=== PATIENT | male | born 1965 | race Caucasian/White ===

== ENCOUNTER 2019-03-10 08:15 | Outpatient (CLI) | payer MEDICARE, MEDICAID ==
[~2019-03-10] VITALS: Ht 170.2 cm; Wt 72.6 kg
[2019-03-10] MEDS ORDERED: OMEP20TA7 PO (08:45)
[2019-03-10] MEDS ORDERED: LEVO50TA6 PO (08:45)
[2019-03-10] MEDS ORDERED: BIMA2.5D4 OU (08:45)
[2019-03-10] MEDS ORDERED: LISI1TAB6 PO (08:45)
== END 2019-03-10 08:49 | disposition home or self-care (01) ==
LOC: PREOP 08:15
PROVIDERS: ATTEND Surgery
DX: Z01.818 Encounter for other preprocedural examination (principal)

== ENCOUNTER → 2019-03-10 | Outpatient (CLI) | payer MEDICARE, MEDICAID ==
[~2019-03-10] MED LIST: BIMA2.5D4 OU; LEVO50TA6 PO; LISI1TAB6 PO; OMEP20TA7 PO
--- NOTE | 2019-03-10 09:33 | Diagnostic Imaging Report ---
INDICATION: Right upper quadrant abdominal pain. TECHNIQUE: Multiple grayscale sonographic images were obtained of the right upper quadrant of the abdomen. CORRELATION STUDY: None FINDINGS: LIVER: There is uniform echotexture within the visualized portions of the liver. Liver length is 16.2 cm. GALLBLADDER: Echogenic foci within the gallbladder lumen. This does not demonstrate appreciable enhancement may reflect small amount of sludge or debris. Gallstone not excluded. There is presence of gallbladder wall thickening at 4 mm. COMMON BILE DUCT: Nondilated at 3 mm. PANCREAS: Largely obscured. RIGHT KIDNEY: Measures 11.0 x 6.7 x 6.1 cm cm. No hydronephrosis. AORTA/IVC: Not well visualized. OTHER: None. IMPRESSION: 1. Question of potential the gallstone versus sludge or debris. There is presence of gallbladder wall thickening. Some of this may be attributed to slightly contracted gallbladder. Gallbladder wall edema with cholecystitis however is not excluded. If further assessment is desired, HIDA scan would be recommended. Dictated by: Dictated on workstation # [id number]
== END ==
LOC: RAD 07:05
PROVIDERS: ATTEND Surgery
DX: K82.8 Other specified diseases of gallbladder (principal)
CPT/HCPCS: 76705

== ENCOUNTER 2019-03-17 08:10 | Day surgery (SDC) | payer MEDICARE, MEDICAID ==
[~2019-03-17] VITALS: Ht 170.2 cm; Wt 72.6 kg
[2019-03-17] VITALS (12 sets, daily range): BP systolic 129–143; BP diastolic 81–93
[2019-03-17] MEDS ORDERED: ceFAZolin 2 GM/50 ML NS 50 ML IV ONE (08:30)
[2019-03-17] MEDS ORDERED: CATHETER FLUSH 10 ML SYR IV PRN (08:30)
[2019-03-17] MEDS: LACTATED RINGERS 1,000 ML IV PRN ×2 (08:44→10:22)
[2019-03-17 08:48] LABS: BASOPHILS % (AUTO) 0 % (0-10); EOSINOPHILS % (AUTO) 0 % (0-10); HEMATOCRIT 33 % (40-54); HEMOGLOBIN 12.2 G/DL (13.3-17.7); LYMPHOCYTES # (AUTO) 0.9 X 10^3 (1.0-4.0); LYMPHOCYTES % (AUTO) 15 % (12-44); MEAN CORPUSCULAR HEMOGLOBIN 37 PG (25-34); MEAN CORPUSCULAR HGB CONC 37 G/DL (32-36); MEAN CORPUSCULAR VOLUME 100 FL (80-99); MEAN PLATELET VOLUME 13.1 FL (7.4-10.4); MONOCYTES # (AUTO) 0.7 X 10^3 (0.0-1.0); MONOCYTES % (AUTO) 11 % (0-12); NEUTROPHILS # (AUTO) 4.4 X 10^3 (1.8-7.8); NEUTROPHILS % (AUTO) 74 % (42-75); PLATELET COUNT 93 10^3/uL (130-400)
[2019-03-17] MEDS ORDERED: BUP/EPI 0.5% 1:200,000 (MARCAINE) 10ML VIAL IJ ONE (09:10)
--- NOTE | 2019-03-17 09:24 | Progress Note-Pre Operative ---
Pre-Operative Progress Note H&P Reviewed The H&P was reviewed, patient examined and no changes noted. Date Seen by Provider: Mar 17, 2019 Time Seen by Provider: 09:20 Date H&P Reviewed: Mar 17, 2019 Time H&P Reviewed: 09:15 Pre-Operative Diagnosis: Chronic Calculous cholecystitis, Reflux, Screening colonoscopy SONIA UNGER APRN Mar 17, 2019 09:24
[2019-03-17] MEDS ORDERED: HYDR-3816 PO (09:26)
--- NOTE | 2019-03-17 09:29 | Discharge Inst-Surgical ---
D/C Lap Instructions-KIDO Reconcile Patient Problems Problems Reviewed?: Yes New, Converted, or Re-Newed RX: RX on Chart Follow Up Appt in 2 weeks Activity as tolerated No driving for 24 hours No driving while on pain medications Incentive Spirometry use every 2 hours while awake Regular Diet High Fiber Diet 25g or more per day Avoid Alcohol, Caffeine, Spicy [place] and Acid foods. Drink 64 fluid oz or more of fluids per day. Symptoms to Report: Fever over 101 degree F, Nausea/Vomiting Infection Signs and Symptoms to report: Increased redness, Foul odor of wound, Increased drainage Bathing instructions: May shower Operative Area Clean/Dry; Keep incision clean/dry Symptoms to Report: Fever over 101 degree F, Nausea/Vomiting If any problems/questions: Contact your physician or go to Emergency Room SONIA UNGER APRN Mar 17, 2019 09:29
[2019-03-17] MEDS ORDERED: morphine INJ 10 MG/ML 1ML (SYR OR VIAL) IVP PRN (09:30)
[2019-03-17] MEDS ORDERED: ONDANSETRON 4 MG/2 ML (SDV) Z0FRAN IVP PRN ×3 (09:30→12:15)
[2019-03-17] MEDS ORDERED: ACETAMINOPHEN 325 MG TABLET PO PRN (09:30)
[2019-03-17] MEDS ORDERED: HYDROcodone/APAP 5 MG/325 MG (LORTAB) TAB PO ONE (09:30)
[2019-03-17] MEDS ORDERED: ONDANSETRON 4 MG/2 ML (SDV) Z0FRAN ONE (09:32)
[2019-03-17] MEDS ORDERED: SEVOFLURANE (ULTANE) 15 ML INHAL SOLN ONE ×14 (09:32→11:41)
[2019-03-17] MEDS ORDERED: proPOfol 200 MG/20 ML (DIPRIVAN) VIAL IV ONE (09:32)
[2019-03-17] MEDS ORDERED: LIDOCAINE PF 2% 5 ML (XYLOCAINE) VIAL ONE (09:32)
[2019-03-17] MEDS ORDERED: ROCURONIUM 10 MG/ML 5 ML SYRINGE IV ONE (09:33)
[2019-03-17] MEDS ORDERED: fentaNYL INJECTION 100 MCG/2 ML AMP ONE ×2 (09:33→10:35)
[2019-03-17] MEDS ORDERED: MIDAZOLAM 2 MG/2 ML (VERSED) VIAL ONE ×2 (09:33→09:47)
[2019-03-17] MEDS ORDERED: MIDAZOLAM 2 MG/2 ML (VERSED) VIAL IVP ONE (10:00)
[2019-03-17] MEDS ORDERED: DEXAMETHASONE 10 MG/ML (DECADRON) 1 ML VIAL ONE (10:21)
[2019-03-17] MEDS ORDERED: morphine INJ 10 MG/ML 1ML (SYR OR VIAL) IVP ONE ×2 (11:15→12:15)
[2019-03-17] MEDS ORDERED: MEPERIDINE (DEMEROL) INJ 50 MG/ML IVP ONE ×2 (11:15→12:15)
[2019-03-17 11:30] LABS: HEMOGLOBIN 9.7 G/DL (13.3-17.7)
[2019-03-17] MEDS ORDERED: GLYCOPYRROLATE 0.2 MG/ML (ROBINUL) 2 ML VIAL ONE (11:34)
[2019-03-17] MEDS ORDERED: NEOSTIGMINE 3 MG/3 ML VIAL ONE (11:34)
--- NOTE | 2019-03-17 11:47 | Progress Note-Post Operative ---
Post-Operative Progess Note Surgeon (s)/Agricultural Produce Commission Agent (s) Surgeon Dr. Emmanuel De Souza M.D. Agricultural Produce Commission Agent: Emilio Unger [employer]ORAGE CLERK Pre-Operative Diagnosis Chronic Calculous cholecystitis, Reflux, Screening colonoscopy Post-Operative Diagnosis Chronic Calculous cholecystitis, Grade III esophageal Varices, moderate to severe gastritis, Chronic stage II external and internal hemorrhoids Procedure & Operative Findings Date of Procedure 03/17/19 Procedure Performed/Findings Laparoscopic cholecystectomy, EGD with biopsy, colonoscopy Anesthesia Type GET Estimated Blood Loss Estimated blood loss (mL): 900 ml Specimens/Packing Specimens Removed 1) Gallbladder 2) Antrum EMILIO UNGER [employer] STORAGE CLERK Mar 17, 2019 11:47
[2019-03-17] MEDS ORDERED: PANT40TA2 PO (11:49)
[2019-03-17] MEDS ORDERED: HYDROcodone/APAP 7.5 MG/325 MG (LORTAB, LORCET PLUS) TABLET PO ONE (13:26)
[2019-03-17] MEDS ORDERED: HYDROcodone/APAP 5 MG/325 MG (LORTAB) TAB ONE (13:27)
--- NOTE | 2019-03-17 14:05 | Anesthesia-General Post-Op ---
General Patient Condition Mental Status/LOC: Same as Preop Cardiovascular: Satisfactory Nausea/Vomiting: Absent Respiratory: Satisfactory Pain: Controlled Complications: Absent Post Op Complications Complications None Follow Up Care/Instructions Patient Instructions None needed. Anesthesia/Patient Condition Patient Condition Patient is doing well, C/O some pain which is expected, stable vital signs, no apparent adverse anesthesia problems. CRISS ARRIAGA DO Mar 17, 2019 14:05
--- NOTE | 2019-03-17 20:18 | OPERATIVE REPORT ---
DATE OF SERVICE: 03/17/2019 ATTENDING PRIMARY CARE PHYSICIAN: Dr. Caden Fernandez. PREOPERATIVE DIAGNOSES: 1. Symptomatic chronic calculous cholecystitis. 2. Gastroesophageal reflux disease, screening colonoscopy. POSTOPERATIVE DIAGNOSES: Chronic calculous cholecystitis, diffuse liver cirrhosis, grade III esophageal varices, moderate to severe gastritis, mild chronic stage II external and internal hemorrhoids. PROCEDURE: Laparoscopic cholecystectomy, EGD with biopsy, colonoscopy. SURGEON: Bria De Souza MD ANESTHESIA: Conscious sedation. ESTIMATED BLOOD LOSS: 900 mL. FINDINGS: Diffuse liver cirrhosis, multiple gallstones, grade III esophageal varices, moderate to severe gastritis. No active bleeding. Chronic stage II external and internal hemorrhoids. Remainder of the colon and rectum were normal. DISPOSITION: The patient tolerated the procedure well. INDICATIONS: The patient is a 53-year-old male referred over to us for pain in the right upper abdominal quadrant with associated intermittent episodes of nausea and vomiting. He also does report a history of gastroesophageal reflux disease. An ultrasound was performed, which did show biliary sludge. He also is in need of a screening colonoscopy and has not had one before up to this point in his life. Of note, this gentleman does drink a significant amount of alcohol and reports that he has drank approximately 20 beers daily for the past 30 years. DESCRIPTION OF PROCEDURE: The patient was brought to the operating room, laid supine on the table. After adequate IV pain and sedative medications and general endotracheal intubation, the abdomen was prepped and draped in standard surgical fashion. Left upper abdominal quadrant and a transverse skin incision made using a 15 blade. An 0 silk suture was applied to the medial aspect of the incision for retraction and a Veress needle inserted with a low opening pressure of 0 mmHg and the abdomen was then insufflated to 15 mmHg pressure. The Veress needle removed and a 5 mm XL trocar placed followed by a 5 mm 45-degree angle laparoscope visualizing the peritoneal cavity. A 4-quadrant abdominal exploration was performed. There was diffuse liver, micronodular liver cirrhosis. There was slightly distended gallbladder, no gallbladder wall thickening. Under direct visualization, we then proceeded to place a supraumbilical 10 mm port after the skin an peritoneal lining were anesthetized using 0.5% Marcaine with epinephrine and a transverse skin incision made using a 15 blade. In a similar manner, a right upper abdominal quadrant 5 mm port was placed. The patient was then placed in the reverse Trendelenburg position as well as plane right side up, left side down. The fundus of the gallbladder was then retracted anteriorly and superiorly. The hepatoduodenal ligament was then opened and dissected using blunt dissection as well as electrocautery on the hook instrument. The entire critical view of safety was identified including the triangle of Calot as well as the cystic duct and artery as the only two structures going into the gallbladder as well as the cystic plate behind the proximal gallbladder. While dissecting the cystic artery, we did run into bleeding, which was controlled with a clip and fibrin glue. After bleeding, good hemostasis was observed. We proceeded with our dissection of the clipping of the cystic duct and artery proximally, distally and cutting them with EndoShears. The gallbladder was then dissected off the liver bed using cautery on the hook instrument with visualization of good hemostasis as well as no leaking ducts of [place]ch[place]. The gallbladder was removed through the 10 mm port site using an EndoCatch bag. Approximately 900 mL of blood loss was encompassed which was suctioned out. Post-procedure, CBC was within stable limits at 9.7. The gallbladder was removed through the 10 mm port site using an EndoCatch bag. The gallbladder was examined ex-vivo on the back table with small stones identified. The 10 mm port site fascia and peritoneum were then closed under direct visualization using a Nathan-Fany device and 0 Vicryl suture. The abdomen was then desufflated and remaining ports removed. All skin incisions were closed using 4-0 Monocryl running subcuticular sutures. Wounds were then cleaned and covered with Dermabond. We then proceeded with the EGD. The mouthpiece was applied. The endoscope was placed in the mouth, visualizing the pharynx and hypopharyngeal region. Vocal cords, epiglottis and vallecula identified and appeared to be normal. The endoscope was then gently intubated at the esophageal opening and esophagus insufflated. The endoscope was then advanced to the first, second and third portion of esophagus. At the distal esophagus, there were grade III esophageal varices identified. These were not actively bleeding. The endoscope was placed past the lower esophagus and the endoscope retroflexed visualizing no hiatal hernia. There was a mild to moderate gastritis. No formal ulcerations, polyps or any neoplasms. A biopsy was taken of the antrum to rule out H. pylori with visualization of good hemostasis. The endoscope was then advanced to the pylorus and the first and second portion of the duodenum, which appeared normal with no ulcerations or any distal obstructions. The endoscope was then slowly withdrawn while taking a second look and suctioning of residual air with no additional findings. Under the same anesthesia, we then proceeded with the colonoscopy portion of the procedure and the patient was placed in frog leg position. A digital rectal examination was performed, which revealed chronic stage II external and internal hemorrhoids, not actively edematous nor inflamed and no bleeding. Normal sphincter tone was felt and there were no palpable masses. Prostate gland was palpable and appeared normal. The endoscope was then intubated to the anus and rectum gently insufflated. The endoscope was then advanced to the valves of [place] of the rectum with no polyps or any neoplasms identified. We then proceeded through the sigmoid colon where no diverticulosis identified. The endoscope was then advanced to the remainder of the descending, transverse and ascending colon to the cecum. These segments were normal. There were no polyps or any neoplasms identified throughout the colon or rectum. The endoscope was then slowly withdrawn while taking a second look and suctioning of residual air with no additional findings. The patient tolerated the procedure well. We will recommend that he proceed with further medical therapy for his liver cirrhosis encompassing alcohol cessation as well as being referred to hepatology for delineation of modified Child-Garcia classification as well as his MELD score. He does have significant grade III esophageal varices as well, which will need to be further evaluated and potentially decompressed with a portosystemic shunt. If he does abstain from alcohol and he does meet the criteria for liver transplantation, he may potentially be placed on a list. Job ID: [id number] DocumentID: [id number] Dictated Date: 03/17/2019 15:30:14 Animal Tech Date: 03/17/2019 20:17:34 Dictated By: BRIA DE SOUZA MD MTDD
== END 2019-03-17 14:40 | disposition home or self-care (01) ==
LOC: SDC 08:10
PROVIDERS: ATTEND Surgery
DX: Z12.11 Encounter for screening for malignant neoplasm of colon (principal); K21.9 Gastro-esophageal reflux disease without esophagitis; K80.10 Calculus of gallbladder with chronic cholecystitis without obstruction; D36.0 Benign neoplasm of lymph nodes; I85.00 Esophageal varices without bleeding; K29.50 Unspecified chronic gastritis without bleeding; K74.60 Unspecified cirrhosis of liver; K64.8 Other hemorrhoids; K64.1 Second degree hemorrhoids; I10 Essential (primary) hypertension; E03.9 Hypothyroidism, unspecified; Z80.0 Family history of malignant neoplasm of digestive organs; Z79.891 Long term (current) use of opiate analgesic; Z79.899 Other long term (current) drug therapy
CPT/HCPCS: 43239; 47562; G0105; 36415; 85014; 85018; 85025; 87081; 88304; 88305; 88342

== ENCOUNTER → 2019-05-21 | Outpatient (CLI) | payer MEDICARE, MEDICAID ==
[~2019-05-21] MED LIST changes: +HYDR-3816 PO; +PANT40TA2 PO
--- NOTE | 2019-05-21 10:51 | Diagnostic Imaging Report ---
INDICATION: ABDOMEN PAIN COMPARISON: None FINDINGS: Supine and upright views of the abdomen show a a few mildly prominent air-filled loops of small bowel, greatest involving the proximal small bowel in the left hemiabdomen. A few air-fluid levels are also noted scattered throughout. There is no large collection of free intraperitoneal air. No abnormal extraosseous calcifications are seen. Bony and soft tissue structures are within normal limits. No organomegaly is identified. Accompanying upright chest shows normal heart size and pulmonary vascularity. The lungs are well aerated and clear. The mediastinum is normal in appearance. IMPRESSION: 1. Few mildly prominent loops of small bowel with scattered air-fluid levels. Findings could be on the basis of early or partial obstruction. Nonspecific enteritis is also consideration. 2. No acute cardiopulmonary process. Dictated by: Dictated on workstation # [id number]
== END ==
LOC: RAD FS 09:40
PROVIDERS: ATTEND Emergency Medicine
DX: K70.30 Alcoholic cirrhosis of liver without ascites (principal); K63.89 Other specified diseases of intestine
CPT/HCPCS: 74022

== ENCOUNTER 2020-06-07 09:43 | Emergency (ER) | payer MEDICARE, MEDICAID ==
[~2020-06-07] VITALS: Ht 167.7 cm; Wt 71.9 kg
[~2020-06-07 09:43] MED LIST changes: +HYDR-34 PO; -HYDR-3816 PO; +LISI1TAB29 PO; -LISI1TAB6 PO
[2020-06-07] MEDS ORDERED: NS IV 1000 ML 1,000 ML IV STA (09:54)
--- NOTE | 2020-06-07 09:58 | ED General ---
General Stated Complaint: BACK PAIN Source of Information: Patient, Old Records, RN/MD, RN Notes Reviewed History of Present Illness Date Seen by Provider: Jun 07, 2020 Time Seen by Provider: 09:45 Initial Comments This patient is a 54-year-old male presents to the emergency department complaining of right flank pain radiating to the right groin. Patient states he awakened this morning with this pain. Patient admits that he is a heavy drinker has been drinking most of his life is considered an alcoholic. Last drink was last night. Patient states he never had pain like this before. Patient denies any injury. Patient denies any fever. We'll do medical evaluation treatment is needed. Patient states she does have a history of liver problems concerning for possible cirrhosis of the liver. Severity: Moderate Associated Systoms: No Denies Symptoms, No Chest Pain, No Cough, No Diaphoresis, No Fever/Chills, No Headaches, No Loss of Appetite, No Malaise, No Nausea/Vomiting, No Rash, No Seizure, No Shortness of Air, No Syncope, No Weakness, No Other Allergies and Home Medications Allergies Coded Allergies: No Known Drug Allergies (Unverified , 03/10/19) Home Medications Bimatoprost 2.5 Ml Drops, 1 DROP OU DAILY, (Reported) Hydrocodone Bit/Acetaminophen 1 Each Tablet, 1-2 TAB PO Q4H Prescribed by: SONIA UNGER on 03/17/19 0926 Levothyroxine Sodium 50 Mcg Tablet, 50 MCG PO DAILY, (Reported) Lisinopril/Hydrochlorothiazide 1 Each Tablet, 2 EACH PO DAILY, (Reported) Pantoprazole Sodium 40 Mg Tablet.dr, 40 MG PO DAILY Prescribed by: SONIA UNGER on 03/17/19 1149 Patient Home Medication List Home Medication List Reviewed: Yes Review of Systems Review of Systems Constitutional: No no symptoms reported, No see HPI, No chills, No diaphoresis, No dizziness, No fever, No malaise, No weakness, No weight gain, No weight loss, No other EENTM: No see HPI, No no symptoms reported, No ear discharge, No hearing loss, No ear pain, No blurred vision, No double vision, No eye pain, No tearing, No vision loss, No dental problems, No hoarseness, No mouth pain, No mouth swelling, No epistaxis, No nose congestion, No nose pain, No throat pain, No throat swelling, No other Respiratory: No no symptoms reported, No see HPI, No cough, No dyspnea on exertion, No hemoptysis, No orthopnea, No phlegm, No short of breath, No stridor, No wheezing, No other Cardiovascular: No no symptoms reported, No see HPI, No chest pain, No edema, No Hx of Intervention, No palpitations, No syncope, No vascular heart diseas, No other Gastrointestinal: No RUQ, No LUQ, No RLQ, No LLQ, No no symptoms reported, No see HPI, No abdominal pain, No constipation, No diarrhea, No dysphagia, No hematemesis, No heartburn, No jaundice, No loss of appetite, No melena, No naus ea, No vomiting; other (flank pain) Genitourinary: No no symptoms reported, No see HPI, No decreased output, No discharge, No dysuria, No frequency, No hematuria, No hesitancy, No incontinence, No nocturia, No pain, No other Musculoskeletal: No no symptoms reported; see HPI, back pain; No gout, No joint pain, No joint swelling, No muscle pain, No muscle stiffness, No muscle cramps, No muscle twitching, No muscle weakness, No neck pain, No other Skin: No no symptoms reported, No see HPI, No change in color, No change in hair/nails, No dryness, No hx of skin cancer, No lesions, No lumps, No pruritus, No rash, No other All Other Systems Reviewed Negative Unless Noted: Yes Past Okgjijn-Zqtpsg-Mwccbq Hx Patient Social History Alcohol Beverage of Choice: Beer Type Used: Cigarettes Former Smoker, Quit: Feb 15, 2018 Recent Foreign Travel: No Contact w/Someone Who Travel: No Recent Hopitalizations: No Seasonal Allergies Seasonal Allergies: No Past Medical History Surgeries: Yes (R knee scope, back sx) Respiratory: No Cardiac: Yes Hypertension Neurological: No Genitourinary: No Gastrointestinal: Yes (epigastric pain) Gastroesophageal Reflux Musculoskeletal: No Endocrine: Yes Hypothyroidsim HEENT: Yes Glaucoma Cancer: No Psychosocial: No Integumentary: No Blood Disorders: No Physical Exam Vital Signs Vital Signs - First Documented 06/07/20 09:48 Temp 36.6 Pulse 77 Resp 18 B/P (MAP) 179/100 (126) Pulse Ox 99 O2 Delivery Room Air Capillary Refill : Height, Weight, BMI Height: 5'7.00" Weight: 160lbs. 0.0oz. 72.520386lv; 25.1 BMI Method: General Appearance: No Apparent Distress, WD/WN Neck: Full Range of Motion, Normal Inspection, Non Tender, Supple, Carotid Bruit Respiratory: Chest Non Tender, Lungs Clear, Normal Breath Sounds, No Accessory Muscle Use, No Respiratory Distress Cardiovascular: Regular Rate, Rhythm, No Edema, No Gallop, No JVD, No Murmur, Normal Peripheral Pulses Gastrointestinal: Normal Bowel Sounds, No Organomegaly, No Pulsatile Mass, Soft, Tenderness Back: Normal Inspection, No Vertebral Tenderness, CVA Tenderness (R) Neurologic/Psychiatric: Alert, Oriented x3, No Motor/Sensory Deficits, Normal Mood/Affect Skin: Normal Color, Warm/Dry Progress/Results/Core Measures Suspected Sepsis SIRS Temperature: Pulse: Respiratory Rate: Laboratory Tests 06/07/20 09:55: White Blood Count 3.0L Blood Pressure / Mean: Laboratory Tests 06/07/20 09:55: Creatinine 0.75, Platelet Count 83L, Total Bilirubin 1.6H Results/Orders Lab Results Laboratory Tests Test 06/07/20 09:48 06/07/20 09:55 Range/Units Urine Color YELLOW Urine Clarity CLEAR Urine pH 8.0 5-9 Urine Specific [place] 1.015 L 1.016-1.022 Urine Protein NEGATIVE NEGATIVE Urine Glucose (UA) NEGATIVE NEGATIVE Urine Ketones NEGATIVE NEGATIVE Urine Nitrite NEGATIVE NEGATIVE Urine Bilirubin NEGATIVE NEGATIVE Urine Urobilinogen 4.0 < = 1.0 MG/DL Urine Leukocyte Esterase NEGATIVE NEGATIVE Urine RBC (Auto) NEGATIVE NEGATIVE Urine RBC NONE /HPF Urine WBC NONE /HPF Urine Squamous Epithelial Cells 0-2 /HPF Urine Crystals NONE /LPF Urine Bacteria NONE /HPF Urine Casts NONE /LPF Urine Mucus NEGATIVE /LPF Urine Culture Indicated NO Urine Opiates Screen NEGATIVE NEGATIVE Urine Oxycodone Screen NEGATIVE NEGATIVE Urine Methadone Screen NEGATIVE NEGATIVE Urine Propoxyphene Screen NEGATIVE NEGATIVE Urine Barbiturates Screen NEGATIVE NEGATIVE Ur Tricyclic Antidepressants Screen NEGATIVE NEGATIVE Urine Phencyclidine Screen NEGATIVE NEGATIVE Urine Amphetamines Screen NEGATIVE NEGATIVE Urine Methamphetamines Screen NEGATIVE NEGATIVE Urine Benzodiazepines Screen NEGATIVE NEGATIVE Urine Cocaine Screen NEGATIVE NEGATIVE Urine Cannabinoids Screen POSITIVE H NEGATIVE White Blood Count 3.0 L 4.3-11.0 10^3/uL Red Blood Count 3.84 L 4.35-5.85 10^6/uL Hemoglobin 13.6 13.3-17.7 G/DL Hematocrit 38 L 40-54 % Mean Corpuscular Volume 98 80-99 FL Mean Corpuscular Hemoglobin 35 H 25-34 PG Mean Corpuscular Hemoglobin Concent 36 32-36 G/DL Red Cell Distribution Width 12.2 10.0-14.5 % Platelet Count 83 L 130-400 10^3/uL Mean Platelet Volume 11.4 H 7.4-10.4 FL Immature Granulocyte % (Auto) 0 % Neutrophils (%) (Auto) 66 42-75 % Lymphocytes (%) (Auto) 23 12-44 % Monocytes (%) (Auto) 9 0-12 % Eosinophils (%) (Auto) 1 0-10 % Basophils (%) (Auto) 0 0-10 % Neutrophils # (Auto) 2.0 1.8-7.8 X 10^3 Lymphocytes # (Auto) 0.7 L 1.0-4.0 X 10^3 Monocytes # (Auto) 0.3 0.0-1.0 X 10^3 Eosinophils # (Auto) 0.0 0.0-0.3 10^3/uL Basophils # (Auto) 0.0 0.0-0.1 10^3/uL Immature Granulocyte # (Auto) 0.0 0.0-0.1 10^3/uL Sodium Level 126 L 135-145 MMOL/L Potassium Level 4.1 3.6-5.0 MMOL/L Chloride Level 91 L 98-107 MMOL/L Carbon Dioxide Level 22 21-32 MMOL/L Anion Gap 13 5-14 MMOL/L Blood Urea Nitrogen 6 L 7-18 MG/DL Creatinine 0.75 0.60-1.30 MG/DL Estimat Glomerular Filtration Rate > 60 BUN/Creatinine Ratio 8 Glucose Level 121 H 70-105 MG/DL Calcium Level 9.9 8.5-10.1 MG/DL Corrected Calcium 8.5-10.1 MG/DL Total Bilirubin 1.6 H 0.1-1.0 MG/DL Aspartate Amino Transf (AST/SGOT) 140 H 5-34 U/L Alanine Aminotransferase (ALT/SGPT) 99 H 0-55 U/L Alkaline Phosphatase 93 40-136 U/L Total Protein 7.3 6.4-8.2 GM/DL Albumin 4.7 H 3.2-4.5 GM/DL Lipase 26 8-78 U/L Serum Alcohol < 10 <10 MG/DL My Orders Orders - MIRYAM GREWAL MD Ed Iv/Invasive Line Start (06/07/20 09:54) Alcohol (06/07/20 09:54) Cbc With Automated Diff (06/07/20 09:54) Comprehensive Metabolic Panel (06/07/20 09:54) Lipase (06/07/20 09:54) Urinalysis (06/07/20 09:54) Drug Screen Stat (Urine) (06/07/20 09:54) Ct Abd/Pelvis Wo(Kidney Stone) (06/07/20 09:54) Ns Iv 1000 Ml (Sodium Chloride 0.9%) (06/07/20 09:54) Ondansetron Injection (Zofran Injectio (06/07/20 10:00) Ketorolac Injection (Toradol Injection) (06/07/20 10:16) Ketorolac Injection (Toradol Injection) (06/07/20 10:30) Orphenadrine Inj (Ed Only) (Norflex Inje (06/07/20 10:30) Medications Given in ED Current Medications Medications Dose Ordered Sig/Blu Route Start Time Stop Time Status Last Admin Dose Admin Ketorolac Tromethamine 15 mg ONCE ONCE IVP 06/07/20 10:30 06/07/20 10:31 DC 06/07/20 10:24 15 MG Ondansetron HCl 4 mg ONCE ONCE IVP 06/07/20 10:00 06/07/20 10:01 DC 06/07/20 10:23 4 MG Orphenadrine Citrate 60 mg ONCE ONCE IM 06/07/20 10:30 06/07/20 10:31 DC 06/07/20 10:35 60 MG Vital Signs/I&O 06/07/20 09:48 Temp 36.6 Pulse 77 Resp 18 B/P (MAP) 179/100 (126) Pulse Ox 99 O2 Delivery Room Air Capillary Refill : Progress Note : Time: 11:[address] abd IMPRESSION: 1. There is no evidence for nephrolithiasis or urolithiasis and the kidneys do not appear to be obstructed. 2. The appendix is not well visualized but there are no indirect signs of acute appendicitis. 3. The thickened appearance of the wall of the cecum and ascending colon may be secondary to incomplete distention. The possibility that there is an element of mild colitis should also be considered. 4. There is a small amount of nonspecific free fluid in the pelvis. 5. The bladder wall thickening may also be related to incomplete distention or less likely to cystitis. I did discuss at length with patient about findings. Patient is encouraged to stop drinking. Patient will be placed on Flagyl and Cipro. Patient given diclofenac and needed for pain. Patient should maintain a clear liquid diet and advance diet slowly. Do not advance diet until pain free. Follow-up with PCP in 2-3 days. If develops diarrhea patient should take Pepto-Bismol [id number]. Departure Impression Primary Impression: Abdominal pain Additional Impressions: Colitis Hyponatremia Alcoholism History of cirrhosis of liver Disposition: HOME, SELF-CARE Condition: Stable Departure-Patient Inst. Decision time for Depature: 11:05 Referrals: LOUANN DENIS DO (PCP/Family) Primary Care Physician Patient Instructions: Colitis, Severe Abdominal Pain, Adult (DC) Add. Discharge Instructions: Patient is encouraged to stop drinking. Patient will be placed on Flagyl and Cipro. Patient given diclofenac and needed for pain. Patient should maintain a clear liquid diet and advance diet slowly. Do not advance diet until pain free. Follow-up with PCP in 2-3 days. If develops diarrhea patient should take Pepto- Bismol [id number]. Scripts Metronidazole (Flagyl) 500 Mg Tablet 500 MG PO TID, #21 TAB 0 Refills Prov: MIRYAM GREWAL MD 06/07/20 Diclofenac Sodium (Diclofenac Sodium) 75 Mg Tablet. 75 MG PO BID for 10 Days, #20 TAB 0 Refills Prov: MIRYAM GREWAL MD 06/07/20 Ciprofloxacin HCl (Ciprofloxacin HCl) 500 Mg Tablet 500 MG PO BID, #14 TAB Prov: MIRYAM GREWAL MD 06/07/20 MIRYAM GREWAL MD Jun 07, 2020 09:57
[2020-06-07] MEDS ORDERED: KETOROLAC 60 MG/2 ML VIAL IV ONE (10:00)
[2020-06-07] MEDS ORDERED: ONDANSETRON 4 MG/2 ML (SDV) Z0FRAN IVP ONE (10:00)
[2020-06-07 10:09] LABS: BASOPHILS % (AUTO) 0 % (0-10); EOSINOPHILS % (AUTO) 1 % (0-10); HEMATOCRIT 38 % (40-54); HEMOGLOBIN 13.6 G/DL (13.3-17.7); LYMPHOCYTES # (AUTO) 0.7 X 10^3 (1.0-4.0); LYMPHOCYTES % (AUTO) 23 % (12-44); MEAN CORPUSCULAR HEMOGLOBIN 35 PG (25-34); MEAN CORPUSCULAR HGB CONC 36 G/DL (32-36); MEAN CORPUSCULAR VOLUME 98 FL (80-99); MEAN PLATELET VOLUME 11.4 FL (7.4-10.4); MONOCYTES # (AUTO) 0.3 X 10^3 (0.0-1.0); MONOCYTES % (AUTO) 9 % (0-12); NEUTROPHILS % (AUTO) 66 % (42-75); PLATELET COUNT 83 10^3/uL (130-400)
[2020-06-07 10:15] LABS: BILIRUBIN,URINE NEGATIVE (NEGATIVE); CLARITY,URINE CLEAR; COLOR,URINE YELLOW; GLUCOSE, URINE (UA) NEGATIVE (NEGATIVE); KETONES,URINE NEGATIVE (NEGATIVE); LEUKOCYTE ESTERASE ,URINE NEGATIVE (NEGATIVE); NITRITE,URINE NEGATIVE (NEGATIVE); PROTEIN,URINE NEGATIVE (NEGATIVE); SQUAMOUS EPITHELIAL CELL,UR 0-2 /HPF
[2020-06-07] MEDS ORDERED: KETOROLAC 15 MG/ML VIAL ONE (10:16)
[2020-06-07 10:19] LABS: AMPHETAMINE SCREEN, URINE NEGATIVE (NEGATIVE); BARBITURATE SCREEN URINE NEGATIVE (NEGATIVE); BENZODIAZEPINES SCREEN URINE NEGATIVE (NEGATIVE); CANNABINOID SCREEN, URINE POSITIVE (NEGATIVE); COCAINE SCREEN URINE NEGATIVE (NEGATIVE); METHADONE STAT NEGATIVE (NEGATIVE); METHAMPHETAMINE SCREEN URINE S NEGATIVE (NEGATIVE); OPIATE SCREEN URINE NEGATIVE (NEGATIVE); OXYCODONE STAT NEGATIVE (NEGATIVE); PROPOXYPHENE STAT NEGATIVE (NEGATIVE); TRICYCLIC ANTIDEPRESSANTS SCRE NEGATIVE (NEGATIVE)
[2020-06-07 10:29] LABS: ALANINE AMINOTRANSFERASE 99 U/L (0-55); ALBUMIN 4.7 GM/DL (3.2-4.5); ALKALINE PHOSPHATASE 93 U/L (40-136); BILIRUBIN,TOTAL 1.6 MG/DL (0.1-1.0); BUN/CREATININE RATIO 8; CALCIUM 9.9 MG/DL (8.5-10.1); CARBON DIOXIDE 22 MMOL/L (21-32); CHLORIDE 91 MMOL/L (98-107); CREATININE SERUM 0.75 MG/DL (0.60-1.30); GFR ESTIMATED > 60; GLUCOSE 121 MG/DL (70-105); LIPASE 26 U/L (8-78); POTASSIUM 4.1 MMOL/L (3.6-5.0); SODIUM 126 MMOL/L (135-145); TOTAL PROTEIN 7.3 GM/DL (6.4-8.2)
[2020-06-07] MEDS ORDERED: ORPHENADRINE 60 MG/2 ML (NORFLEX) AMP (ED ONLY) IM ONE (10:30)
[2020-06-07] MEDS ORDERED: KETOROLAC 15 MG/ML VIAL IVP ONE (10:30)
--- NOTE | 2020-06-07 10:55 | Diagnostic Imaging Report ---
PROCEDURE: CT urinary tract, rule out kidney stone. TECHNIQUE: Multiple contiguous axial images were obtained through the abdomen and pelvis without the use of intravenous contrast. Auto Exposure Controls were utilized during the CT exam to meet ALARA standards for radiation dose reduction. INDICATION: Right flank pain. COMPARISON: There are no prior CT examinations available for comparison. FINDINGS: There is no evidence for nephrolithiasis or urolithiasis and the kidneys do not appear to be obstructed. There is no solid renal mass identified but there does seem to be a 2.8 cm cyst along the lateral aspect of the left kidney. The appendix was not well visualized but there are no indirect signs of acute appendicitis. The wall of the cecum and ascending colon does seem somewhat thickened. This may be secondary to incomplete distention as there is no distortion of the pericolonic fat in this area to suggest colitis. Even so, the possibility of mild colitis should still be considered. There is a small amount of nonspecific free fluid in the pelvis. This is of uncertain etiology. The bladder wall is thickened and this appearance could be secondary to either cystitis or incomplete distention. Correlation with the patient's urinalysis would be recommended. The prostate gland does not appear to be enlarged. The liver, spleen, pancreas, adrenals, aorta, and inferior vena cava show no sign of an acute abnormality. The gallbladder is surgically absent. The stomach is not well distended and difficult to assess. There does seem to be a small hiatal hernia. The lung bases are clear. The bone windows are unremarkable for a fracture or for a destructive lesion. There is fairly severe degenerative disc and bony disease at L5-S1. IMPRESSION: 1. There is no evidence for nephrolithiasis or urolithiasis and the kidneys do not appear to be obstructed. 2. The appendix is not well visualized but there are no indirect signs of acute appendicitis. 3. The slightly thickened appearance of the wall of the cecum and ascending colon may be secondary to incomplete distention. The possibility that there is an element of mild colitis should also be considered. 4. There is a small amount of nonspecific free fluid in the pelvis. 5. The bladder wall thickening may also be related to incomplete distention or less likely to cystitis. Dictated by: Dictated on workstation # [id number]
[2020-06-07] MEDS ORDERED: METR500T PO (11:06)
[2020-06-07] MEDS ORDERED: DICL75TA2 PO (11:06)
[2020-06-07] MEDS ORDERED: CIPR500T4 PO (11:06)
[2020-06-07 11:14] VITALS: BP 161/78
== END 2020-06-07 11:14 | disposition home or self-care (01) ==
LOC: EDUNIT# 09:43 → ER FS 09:44
DX: R10.9 Unspecified abdominal pain (principal); K52.9 Noninfective gastroenteritis and colitis, unspecified; E87.1 Hypo-osmolality and hyponatremia; F10.20 Alcohol dependence, uncomplicated; E03.9 Hypothyroidism, unspecified; K21.9 Gastro-esophageal reflux disease without esophagitis; I10 Essential (primary) hypertension; H40.9 Unspecified glaucoma; F17.210 Nicotine dependence, cigarettes, uncomplicated; Z87.19 Personal history of other diseases of the digestive system; Z79.890 Hormone replacement therapy
CPT/HCPCS: 36415; 74176; 80053; 80306; 81000; 83690; 85025; G0480; 80320

== ENCOUNTER → 2021-01-01 | Outpatient (CLI) | payer MEDICARE, MEDICAID ==
[~2021-01-01] MED LIST changes: +BARIUM SUSPENSION 2.1% (VANILLA SILQ) 450 ML PO ONE; +CATHETER FLUSH 10 ML SYR IV PRN; +CIPR500T5 PO; +DICL75TA2 PO; +HOLD METFORMIN - RECEIVED CONTRAST 20 ML VIAL IV SCH; +IOHEXOL 350 MG/ML 100 ML (OMNIPAQUE 350) VIAL IV ONE; +METR500T PO; +NS 100 ML (IVPB) BAG IV ONE
--- NOTE | 2021-01-01 10:48 | Diagnostic Imaging Report ---
PROCEDURE: CT abdomen and pelvis with and without contrast. TECHNIQUE: Precontrast acquisitions were acquired through the abdomen and pelvis. Multiple contiguous axial images were obtained through the abdomen and pelvis after the administration of intravenous contrast. Auto Exposure Controls were utilized during the CT exam to meet ALARA standards for radiation dose reduction. INDICATION: Abnormal liver function tests. Correlation is made with prior CT from 06/07/2020. Lung bases are clear. There appear to be multiple varices surrounding the distal esophagus. The liver does demonstrate a nodular contour suggestive of cirrhosis. No discrete liver mass is detected. The gallbladder is surgically absent. No biliary ductal dilatation is seen. Pancreas and spleen are unremarkable. No adrenal mass is detected. Right kidney is unremarkable. Left kidney contains a 3 cm cyst in lower pole. There is no hydronephrosis. Aorta is nonaneurysmal. Bowel loops are normal caliber. There is no obstruction. There is no free fluid identified. The bladder and prostate are unremarkable. No definite abdominal or pelvic lymphadenopathy is detected. IMPRESSION: 1. Features consistent with cirrhosis. No discrete liver mass is identified. Patient does appear to have distal esophageal varices. No definite splenomegaly or ascites is identified. 2. Left renal cyst. 3. No other significant abnormality is detected. Dictated by: Dictated on workstation # [id number]
== END ==
LOC: RAD FS 09:54
PROVIDERS: ATTEND Internal Medicine Hematology & Oncology
DX: R94.5 Abnormal results of liver function studies (principal); D69.6 Thrombocytopenia, unspecified; N28.1 Cyst of kidney, acquired; Z90.49 Acquired absence of other specified parts of digestive tract
CPT/HCPCS: 74178

== ENCOUNTER 2021-01-09 14:39 | Outpatient (RCR) | payer MEDICARE, MEDICAID ==
[2020-12-18 14:11] LABS: BASOPHILS % (AUTO) 1 % (0-10); EOSINOPHILS % (AUTO) 0 % (0-10)
[2020-12-18 14:13] LABS: HEMATOCRIT 38 % (40-54); HEMOGLOBIN 13.7 g/dL (13.3-17.7); LYMPHOCYTES # (AUTO) 0.6 10^3/uL (1.0-4.0); LYMPHOCYTES % (AUTO) 16 % (12-44); MEAN CORPUSCULAR HEMOGLOBIN 36 pg (25-34); MEAN CORPUSCULAR HGB CONC 36 g/dL (32-36); MEAN CORPUSCULAR VOLUME 100 fL (80-99); MEAN PLATELET VOLUME 10.7 fL (9.0-12.2); MONOCYTES # (AUTO) 0.4 10^3/uL (0.0-1.0); MONOCYTES % (AUTO) 11 % (0-12); NEUTROPHILS % (AUTO) 73 % (42-75); PLATELET COUNT 91 10^3/uL (130-400); WHITE BLOOD COUNT 4.1 10^3/uL (4.3-11.0)
[2020-12-18 14:28] LABS: ALANINE AMINOTRANSFERASE 107 U/L (0-55); ALBUMIN 4.8 GM/DL (3.2-4.5); ALKALINE PHOSPHATASE 100 U/L (40-136); BILIRUBIN,TOTAL 1.8 MG/DL (0.1-1.0); BUN/CREATININE RATIO 8; CALCIUM 9.6 MG/DL (8.5-10.1); CARBON DIOXIDE 21 MMOL/L (21-32); CHLORIDE 93 MMOL/L (98-107); CREATININE SERUM 0.78 MG/DL (0.60-1.30); GFR ESTIMATED > 60; GLUCOSE 96 MG/DL (70-105); POTASSIUM 4.3 MMOL/L (3.6-5.0); SODIUM 127 MMOL/L (135-145); TOTAL PROTEIN 7.7 GM/DL (6.4-8.2)
[~2021-01-09 14:39] MED LIST changes: -BARIUM SUSPENSION 2.1% (VANILLA SILQ) 450 ML PO ONE; -CATHETER FLUSH 10 ML SYR IV PRN; -HOLD METFORMIN - RECEIVED CONTRAST 20 ML VIAL IV SCH; -IOHEXOL 350 MG/ML 100 ML (OMNIPAQUE 350) VIAL IV ONE; -NS 100 ML (IVPB) BAG IV ONE
== END 2021-03-18 | disposition home or self-care (01) ==
LOC: ONC 14:39
PROVIDERS: ATTEND Internal Medicine Hematology & Oncology
DX: D69.6 Thrombocytopenia, unspecified (principal); F10.20 Alcohol dependence, uncomplicated; E03.9 Hypothyroidism, unspecified; K70.30 Alcoholic cirrhosis of liver without ascites; I10 Essential (primary) hypertension; Z79.899 Other long term (current) drug therapy; Z79.890 Hormone replacement therapy
CPT/HCPCS: 80053; 82728; 83540; 83550; 83615; 85025; G0463; 82105; 99213; 99214

== ENCOUNTER 2021-05-07 13:03 | Emergency (ER) | payer MEDICARE, MEDICAID ==
[~2021-05-07] VITALS: Ht 167.7 cm; Wt 81.6 kg
--- OUTSIDE RECORDS SUMMARY | 2021-05-07 13:08 | XMS REPORT | Clinical Summary ---
Author Author [facility] Organization [facility] Address Unknown Phone Unavailable Care Team Providers Care Student Support Advisor Name Role Phone Cristian Montana MD Unavailable Caden Fernandez DO PCP Source Comments Some departments are not documenting in the electronic medical record. If you d o not see the information that you expected, contact Release of Information in [facility] [employer] Information Management department at [phone] for further assistan ce in locating additional records.[facility] Allergies No Known Active Allergies Medications End Date Status Medication Sig Dispensed Refills Start Date Active furosemide (LASIX) 40 mg Take 40 mg by 0 tablet mouth daily. Active spironolactone Take 100 mg 0 (ALDACTONE) 100 mg tablet by mouth daily. Active omeprazole DR(+) Take 20 mg by 0 (PRILOSEC) 20 mg capsule mouth twice daily. Active levothyroxine (SYNTHROID) Take 50 mcg 0 50 mcg tablet by mouth daily. Active Problems Not on file Social History Date Tobacco Use Types Packs/Day Years Used Quit: 08/31/2011 Former Smoker Cigarettes Comments Alcohol Use Standard Drinks/Week No 0 (1 standard drink = 0.6 o z pure alcohol) Sex Assigned at Date Recorded Not on file Last Filed Vital Signs Reading Time Taken Comments Vital Sign 115/77 05/01/2012 10:22 AM CDT Blood Pressure 57 05/01/2012 10:22 AM CDT Pulse 36.7 C (98 F) 05/01/2012 10:22 AM CDT Temperature 16 05/01/2012 10:22 AM CDT Respiratory Rate - - Oxygen Saturation - - Inhaled Oxygen Concentration 75.2 kg (165 lb 12.8 oz) 05/01/2012 10:22 AM CDT Weight 177.8 cm (5' 10") 05/01/2012 10:22 AM CDT Height 23.79 05/01/2012 10:22 AM CDT Body Mass Index Plan of Treatment Health Maintenance Due Date Last Done Comments MEDICARE ANNUAL WELLNESS 1967 VISIT HIV SCREENING 1982 DTAP/TDAP VACCINES (1 - 1985 Tdap) PHYSICAL (COMPREHENSIVE) 1985 EXAM COLORECTAL CANCER 2017 SCREENING SHINGLES RECOMBINANT 2017 VACCINE (1 of 2) INFLUENZA VACCINE 05/18/2021 HEPATITIS C SCREENING Completed 09/12/2011, 09/06/2011 Results Not on filefrom Last 3 Months Insurance Type Payer Benefit Subscriber ID Effective Phone Address Plan / Dates Group Medicare MEDICARE MEDICARE [id number] 2000-P PART A AND resent B Medicare UHC MEDICARE UHC [id number] 2019-P COMMUNITY resent [facility] [place] Medicaid [facility] MEDICAID [facility] [id number] 2013- COMM[place]ITY Present [place]AN [place] [phone] Advance Directives 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
--- NOTE | 2021-05-07 13:22 | ED General ---
General Stated Complaint: FALL Source of Information: Patient Exam Limitations: No Limitations History of Present Illness Date Seen by Provider: May 07, 2021 Time Seen by Provider: 13:10 Initial Comments 55-year-old male presents with pain in his right hip after a fall just prior to arrival. Patient states he fell off the back of a pickup truck, landing on his right side. Has been unable to get up or ambulate. Brought to the ER by a friend and extracted from his car by ER staff. Patient denies any other pain or injury. States he does have a history of back problems as well as cirrhosis. Allergies and Home Medications Allergies Coded Allergies: No Known Drug Allergies (Unverified , 03/10/19) Patient Home Medication List Home Medication List Reviewed: Yes Bimatoprost (Lumigan) 2.5 Ml Drops, 1 DROP OU DAILY, (Reported) Entered as Reported by: RACQUEL GROVES on 03/10/19 0845 Ciprofloxacin HCl (Ciprofloxacin HCl) 500 Mg Tablet, 500 MG PO BID Prescribed by: MIRYAM GREWAL on 06/07/20 1106 Diclofenac Sodium (Diclofenac Sodium) 75 Mg Tablet.dr, 75 MG PO BID Prescribed by: MIRYAM GREWAL on 06/07/20 1106 Hydrocodone Bit/Acetaminophen (HYDROcodone/APAP 7.5/325 TAB) 1 Each Tablet, 1-2 TAB PO Q4H Prescribed by: SONIA UNGER on 03/17/19 0926 Levothyroxine Sodium (Levothyroxine Sodium) 50 Mcg Tablet, 50 MCG PO DAILY, (Reported) Entered as Reported by: RACQUEL GROVES on 03/10/19 0845 Lisinopril/Hydrochlorothiazide (Lisinopril-Hctz 10-12.5 mg Tab) 1 Each Tablet, 2 EACH PO DAILY, (Reported) Entered as Reported by: RACQUEL GROVES on 03/10/19 0845 Metronidazole (Flagyl) 500 Mg Tablet, 500 MG PO TID Prescribed by: MIRYAM GREWAL on 06/07/20 1106 Pantoprazole Sodium (Protonix) 40 Mg Tablet.dr, 40 MG PO DAILY Prescribed by: SONIA UNGER on 03/17/19 1149 Review of Systems Review of Systems Constitutional: see HPI; No fever, No weakness Respiratory: no symptoms reported; No cough, No short of breath Cardiovascular: No chest pain, No edema, No palpitations, No syncope Gastrointestinal: No abdominal pain, No loss of appetite, No nausea, No vomiting Musculoskeletal: see HPI, back pain (chronic), joint pain; No neck pain Psychiatric/Neurological: See HPI; Denies Numbness, Denies Seizure, Denies Weakness Past Ghqvwku-Fccgpl-Ptsggw Hx Patient Social History Tobacco Use?: Yes Alcohol Use?: Yes Alcohol type: Beer Alcohol Frequency: Daily Seasonal Allergies Seasonal Allergies: No Past Medical History Surgeries: Yes (R knee scope, back sx) Gallbladder Respiratory: No Cardiac: Yes Hypertension Neurological: No Genitourinary: No Gastrointestinal: Yes (epigastric pain) Gastroesophageal Reflux, Cirrhosis Musculoskeletal: No Endocrine: Yes Hypothyroidsim HEENT: Yes Glaucoma Cancer: No Psychosocial: No Integumentary: No Blood Disorders: No Physical Exam Vital Signs Vital Signs - First Documented 05/07/21 05/07/21 13:10 15:19 Temp 36.5 Pulse 67 Resp 18 B/P (MAP) 170/87 (114) Pulse Ox 100 O2 Delivery Room Air O2 Flow Rate 2.00 Capillary Refill : Height, Weight, BMI Height: 5'7.00" Weight: 160lbs. 0.0oz. 72.648199fv; 25.00 BMI Method: General Appearance: WD/WN, Mild Distress (Moderate pain) Neck: Normal Inspection, Non Tender, Supple Respiratory: Chest Non Tender, Lungs Clear, Normal Breath Sounds, No Accessory Muscle Use, No Respiratory Distress Cardiovascular: Regular Rate, Rhythm, No Edema, No JVD Gastrointestinal: Non Tender, Soft Back: Normal Inspection, No CVA Tenderness, No Vertebral Tenderness Extremity: Normal Capillary Refill, Normal Inspection, Other (Right lower extremity externally rotated and shortened. Moderate tenderness generalized of the right hip.) Neurologic/Psychiatric: Alert, Oriented x3, No Motor/Sensory Deficits, Normal Mood/Affect Skin: Normal Color, Warm/Dry Progress/Results/Core Measures Suspected Sepsis SIRS Temperature: Pulse: Respiratory Rate: Laboratory Tests 05/07/21 13:20: White Blood Count 5.2 Blood Pressure / Mean: Laboratory Tests 05/07/21 13:20: Creatinine 0.75, Platelet Count 128L, Total Bilirubin 1.4H Results/Orders Lab Results Laboratory Tests Test 05/07/21 13:20 Range/Units White Blood Count 5.2 4.3-11.0 10^3/uL Red Blood Count 3.57 L 4.30-5.52 10^6/uL Hemoglobin 12.5 L 13.3-17.7 g/dL Hematocrit 33 L 40-54 % Mean Corpuscular Volume 94 80-99 fL Mean Corpuscular Hemoglobin 35 H 25-34 pg Mean Corpuscular Hemoglobin Concent 37 H 32-36 g/dL Red Cell Distribution Width 11.7 10.0-14.5 % Platelet Count 128 L 130-400 10^3/uL Mean Platelet Volume 10.9 9.0-12.2 fL Immature Granulocyte % (Auto) 0 % Neutrophils (%) (Auto) 43 42-75 % Lymphocytes (%) (Auto) 44 12-44 % Monocytes (%) (Auto) 8 0-12 % Eosinophils (%) (Auto) 4 0-10 % Basophils (%) (Auto) 1 0-10 % Neutrophils # (Auto) 2.2 1.8-7.8 X 10^3 Lymphocytes # (Auto) 2.3 1.0-4.0 X 10^3 Monocytes # (Auto) 0.4 0.0-1.0 X 10^3 Eosinophils # (Auto) 0.2 0.0-0.3 10^3/uL Basophils # (Auto) 0.0 0.0-0.1 10^3/uL Immature Granulocyte # (Auto) 0.0 0.0-0.1 10^3/uL Percent Immature Platelet Fraction 8.0 H 0.0-7.6 % Sodium Level 116 *L 135-145 MMOL/L Potassium Level 4.7 3.6-5.0 MMOL/L Chloride Level 81 L 98-107 MMOL/L Carbon Dioxide Level 19 L 21-32 MMOL/L Anion Gap 16 H 5-14 MMOL/L Blood Urea Nitrogen 11 7-18 MG/DL Creatinine 0.75 0.60-1.30 MG/DL Estimat Glomerular Filtration Rate 109 BUN/Creatinine Ratio 15 Glucose Level 98 70-105 MG/DL Calcium Level 8.9 8.5-10.1 MG/DL Corrected Calcium 8.5-10.1 MG/DL Total Bilirubin 1.4 H 0.1-1.0 MG/DL Aspartate Amino Transf (AST/SGOT) 109 H 5-34 U/L Alanine Aminotransferase (ALT/SGPT) 50 0-55 U/L Alkaline Phosphatase 103 40-136 U/L Total Protein 7.4 6.4-8.2 GM/DL Albumin 4.6 H 3.2-4.5 GM/DL My Orders Orders - JOANA NIEVES DO Pelvis With Right Hip 2-3 View (05/07/21 13:22) Cbc With Automated Diff (05/07/21 13:22) Comprehensive Metabolic Panel (05/07/21 13:22) Morphine Injection (Morphine Injection (05/07/21 13:33) Ondansetron Injection (Zofran Injectio (05/07/21 13:45) Ns Iv 1000 Ml (Sodium Chloride 0.9%) (05/07/21 13:45) Ns Iv 1000 Ml (Sodium Chloride 0.9%) (05/07/21 14:30) Medications Given in ED Current Medications Medications Dose Ordered Sig/Blu Route Start Time Stop Time Status Last Admin Dose Admin Ondansetron HCl 4 mg ONCE ONCE IVP 05/07/21 13:45 05/07/21 13:46 DC 05/07/21 13:57 4 MG Vital Signs/I&O 05/07/21 05/07/21 13:10 15:19 Temp 36.5 Pulse 67 66 Resp 18 9 B/P (MAP) 170/87 (114) 144/79 Pulse Ox 100 96 O2 Delivery Room Air Nasal Cannula O2 Flow Rate 2.00 Capillary Refill : Progress Note : Progress Note After transfer accepted, patient chemistry returned showing significant low serum sodium. Patient states he does have a history of low sodium. Denies history of seizures. Patient tells nurse drinks a 12 pack of beer a day. Diagnostic Imaging Diagonstic Imaging: Xray Plain Films/CT/US/NM/MRI: pelvis Comments NDICATION: Fall with pain. COMPARISON: The study is interpreted in correlation with an abdominal/pelvic CT of 01/01/2021. FINDINGS: There is a displaced fracture of the right femoral neck with fragmental diastasis along its lateral aspect measuring 1.9 cm and resulting in moderate varus angulation. A chronic soft tissue calcification projecting lateral to the intertrochanteric femur is unchanged from the prior CT with the bone appearing otherwise normal at that exam. In the left hip, the pubic ring, symphysis, and SI joints are intact. IMPRESSION: The displaced right femoral neck fracture results in varus angulation but no dislocation. Dictated on workstation # [id number] Dict: 05/07/21 1351 Trans: 05/07/21 1355 [id number] Interpreted by: HOMERO SHERMAN Electronically signed by: Departure Impression Primary Impression: Hip fracture, right Qualified Codes: S72.001A - Fracture of unspecified part of neck of right femur, initial encounter for closed fracture Additional Impressions: Hyponatremia Alcoholism Disposition: XFER SHT-TRM HOSP Condition: Stable Transfer Transfer Reason: Diversion (Dr Trent diverted) Time Spoke to Accepting Phy: 14:00 Transfer Progress Notes Called [facility], spoke to Ortho, Dr Castillo @ 5006- will see pt for surgical eval. Dr Alejandro accepts for transfer to ER @ 1400 Departure-Patient Inst. Referrals: LOUANN DENIS DO (PCP/Family) Primary Care Physician JOANA NIEVES DO May 07, 2021 13:22
[2021-05-07 13:33] LABS: HEMATOCRIT 33 % (40-54); HEMOGLOBIN 12.5 g/dL (13.3-17.7); MEAN CORPUSCULAR HEMOGLOBIN 35 pg (25-34); MEAN CORPUSCULAR HGB CONC 37 g/dL (32-36); MEAN CORPUSCULAR VOLUME 94 fL (80-99); MEAN PLATELET VOLUME 10.9 fL (9.0-12.2); PLATELET COUNT 128 10^3/uL (130-400); WHITE BLOOD COUNT 5.2 10^3/uL (4.3-11.0)
[2021-05-07] MEDS ORDERED: morphine INJ 10 MG/ML 1ML (SYR OR VIAL) IVP STA (13:33)
[2021-05-07 13:34] LABS: BASOPHILS % (AUTO) 1 % (0-10); EOSINOPHILS # (AUTO) 0.2 10^3/uL (0.0-0.3); EOSINOPHILS % (AUTO) 4 % (0-10); LYMPHOCYTES # (AUTO) 2.3 X 10^3 (1.0-4.0); LYMPHOCYTES % (AUTO) 44 % (12-44); MONOCYTES # (AUTO) 0.4 X 10^3 (0.0-1.0); MONOCYTES % (AUTO) 8 % (0-12); NEUTROPHILS # (AUTO) 2.2 X 10^3 (1.8-7.8); NEUTROPHILS % (AUTO) 43 % (42-75)
[2021-05-07] MEDS ORDERED: ONDANSETRON 4 MG/2 ML (SDV) Z0FRAN IVP ONE (13:45)
[2021-05-07] MEDS ORDERED: NS IV 1000 ML 1,000 ML IV SCH ×2 (13:45→14:30)
--- NOTE | 2021-05-07 13:55 | Diagnostic Imaging Report ---
INDICATION: Fall with pain. COMPARISON: The study is interpreted in correlation with an abdominal/pelvic CT of 01/01/2021. FINDINGS: There is a displaced fracture of the right femoral neck with fragmental diastasis along its lateral aspect measuring 1.9 cm and resulting in moderate varus angulation. A chronic soft tissue calcification projecting lateral to the intertrochanteric femur is unchanged from the prior CT with the bone appearing otherwise normal at that exam. In the left hip, the pubic ring, symphysis, and SI joints are intact. IMPRESSION: The displaced right femoral neck fracture results in varus angulation but no dislocation. Dictated by: Dictated on workstation # [id number]
[2021-05-07 14:03] LABS: ALANINE AMINOTRANSFERASE 50 U/L (0-55); ALKALINE PHOSPHATASE 103 U/L (40-136); BILIRUBIN,TOTAL 1.4 MG/DL (0.1-1.0); BUN/CREATININE RATIO 15; CALCIUM 8.9 MG/DL (8.5-10.1); CARBON DIOXIDE 19 MMOL/L (21-32); CHLORIDE 81 MMOL/L (98-107); CREATININE SERUM 0.75 MG/DL (0.60-1.30); GFR ESTIMATED 109; GLUCOSE 98 MG/DL (70-105); POTASSIUM 4.7 MMOL/L (3.6-5.0); SODIUM 116 MMOL/L (135-145)
[2021-05-07 14:04] LABS: ALBUMIN 4.6 GM/DL (3.2-4.5); TOTAL PROTEIN 7.4 GM/DL (6.4-8.2)
[2021-05-07 15:19] VITALS: BP 144/79
== END 2021-05-07 15:59 | disposition short-term general hospital (02) ==
LOC: EDUNIT# 13:03 → ER FS 13:04
DX: S72.001A Fracture of unspecified part of neck of right femur, initial encounter for closed fracture (principal); E87.1 Hypo-osmolality and hyponatremia; F10.20 Alcohol dependence, uncomplicated; I10 Essential (primary) hypertension; K21.9 Gastro-esophageal reflux disease without esophagitis; E03.9 Hypothyroidism, unspecified; H40.9 Unspecified glaucoma; Z79.890 Hormone replacement therapy; Z79.899 Other long term (current) drug therapy; W18.30XA Fall on same level, unspecified, initial encounter
CPT/HCPCS: 36415; 51702; 73502; 80053; 85025; 96374; 96375

== ENCOUNTER 2021-12-17 10:45 | Emergency (ER) | payer MEDICARE, MEDICAID ==
[~2021-12-17] VITALS: Ht 172 cm; Wt 81.6 kg
[~2021-12-17 10:45] MED LIST changes: -LISI1TAB29 PO; +LISI1TAB44 PO; +OMEP20TA56 PO; -OMEP20TA7 PO
[2021-12-17] MEDS ORDERED: FAMOTIDINE 20MG/2ML IV (PEPCID) IV STA (10:49)
[2021-12-17] MEDS ORDERED: LACTATED RINGERS 1,000 ML IV STA (10:49)
[2021-12-17] MEDS ORDERED: ONDANSETRON 4 MG/2 ML (SDV) Z0FRAN IVP ONE (11:00)
--- NOTE | 2021-12-17 11:00 | ED General ---
General Chief Complaint: Substance Abuse Stated Complaint: COUGHING BLOOD History of Present Illness Date Seen by Provider: December 17, 2021 Time Seen by Provider: 10:45 Initial Comments 56-year-old male presents with some nausea, vomiting, diarrhea. Patient reports he was at work when he had to go the bathroom when he had a bowel movement in his pants Patient reports he was very loose. Patient reports when he got home he started vomiting. Patient reports he has a some generalized body aches and sore throat. Patient admits to being in a daily drinker that has been up since 4 AM this morning and had at least 6 if not more at that time and has had a drink about every hour. 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 Patient admits to having a history of cirrhosis, frequent marijuana use. Patient has some mild di scomfort in left upper quadrant and epigastric region. Reports that when he vomited there was just a little bit of blood associated with it. Patient denies any fever. Allergies and Home Medications Allergies Coded Allergies: No Known Drug Allergies (Unverified , 03/10/19) Patient Home Medication List Home Medication List Reviewed: Yes Bimatoprost (Lumigan) 2.5 Ml Drops, 1 DROP OU DAILY, (Reported) Entered as Reported by: RACQUEL GROVES on 03/10/19 0845 Ciprofloxacin HCl (Ciprofloxacin HCl) 500 Mg Tablet, 500 MG PO BID Prescribed by: MIRYAM GREWAL on 06/07/20 1106 Diclofenac Sodium (Diclofenac Sodium) 75 Mg Tablet.dr, 75 MG PO BID Prescribed by: MIRYAM GREWAL on 06/07/20 1106 Hydrocodone Bit/Acetaminophen (HYDROcodone/APAP 7.5/325 TAB) 1 Each Tablet, 1-2 TAB PO Q4H Prescribed by: SONIA UNGER on 03/17/19 0926 Levothyroxine Sodium (Levothyroxine Sodium) 50 Mcg Tablet, 50 MCG PO DAILY, (Reported) Entered as Reported by: RACQUEL GROVES on 03/10/19 0845 Lisinopril/Hydrochlorothiazide (Lisinopril-Hctz 10-12.5 mg Tab) 1 Each Tablet, 2 EACH PO DAILY, (Reported) Entered as Reported by: RACQUEL GROVES on 03/10/19 0845 Metronidazole (Flagyl) 500 Mg Tablet, 500 MG PO TID Prescribed by: MIRYAM GREWAL on 06/07/20 1106 Pantoprazole Sodium (Protonix) 40 Mg Tablet.dr, 40 MG PO DAILY Prescribed by: SONIA UNGER on 03/17/19 1149 Review of Systems Review of Systems Constitutional: No diaphoresis, No fever; malaise EENTM: no symptoms reported Respiratory: No cough, No short of breath Cardiovascular: No chest pain, No palpitations Gastrointestinal: abdominal pain, diarrhea, nausea, vomiting Genitourinary: incontinence Musculoskeletal: see HPI Skin: other (eccymosis,left chest wall- "someone grabbed boob" ) Psychiatric/Neurological: No Symptoms Reported Hematologic/Lymphatic: See HPI Immunological/Allergic: see HPI Past Knhahvt-Mixtqt-Dmtrix Hx Seasonal Allergies Seasonal Allergies: No Past Medical History Surgeries: Yes (R knee scope, back sx) Gallbladder Respiratory: No Cardiac: Yes Hypertension Neurological: No Genitourinary: No Gastrointestinal: Yes (epigastric pain) Gastroesophageal Reflux, Cirrhosis Musculoskeletal: No Endocrine: Yes Hypothyroidsim HEENT: Yes Glaucoma Cancer: No Psychosocial: No Integumentary: No Blood Disorders: No Physical Exam Vital Signs Vital Signs - First Documented 12/17/21 10:45 Temp 36.2 Pulse 82 Resp 20 B/P (MAP) 167/95 (119) Pulse Ox 99 O2 Delivery Room Air Capillary Refill : Height, Weight, BMI Height: 5'7.00" Weight: 160lbs. 0.0oz. [id number]; 29.00 BMI Method: General Appearance: No Apparent Distress Eyes: Bilateral Eye Normal Inspection HEENT: PERRL/EOMI, Moist Mucous Membranes Neck: Full Range of Motion, Normal Inspection Respiratory: Lungs Clear, Normal Breath Sounds Cardiovascular: Regular Rate, Rhythm, No Edema Gastrointestinal: Soft, Tenderness (mild left upper quad ) Back: Normal Inspection Extremity: Normal Capillary Refill, Normal Range of Motion Neurologic/Psychiatric: Alert, Oriented x3 Skin: Ecchymosis (left chest wall ), Jaundice (mild ) Focused Exam Lactate Level 12/17/21 10:50: Lactic Acid Level 2.25*H Lactic Acid Level Laboratory Tests Test 12/17/21 10:50 Lactic Acid Level 2.25 MMOL/L (0.50-2.00) *H Progress/Results/Core Measures Suspected Sepsis SIRS Temperature: Pulse: Respiratory Rate: Laboratory Tests 12/17/21 10:50: White Blood Count 4.3 Blood Pressure / Mean: 12/17/21 10:50: Lactic Acid Level 2.25*H Laboratory Tests 12/17/21 10:50: Creatinine 0.67, Platelet Count 101L, Total Bilirubin 1.2H Results/Orders Lab Results Laboratory Tests Test 12/17/21 10:50 12/17/21 10:54 12/17/21 10:56 12/17/21 11:12 Range/Units White Blood Count 4.3 4.3-11.0 10^3/uL Red Blood Count 4.28 L 4.30-5.52 10^6/uL Hemoglobin 14.6 13.3-17.7 g/dL Hematocrit 41 40-54 % Mean Corpuscular Volume 96 80-99 fL Mean Corpuscular Hemoglobin 34 25-34 pg Mean Corpuscular Hemoglobin Concent 35 32-36 g/dL Red Cell Distribution Width 13.2 10.0-14.5 % Platelet Count 101 L 130-400 10^3/uL Mean Platelet Volume 10.7 9.0-12.2 fL Immature Granulocyte % (Auto) 0 % Neutrophils (%) (Auto) 63 42-75 % Lymphocytes (%) (Auto) 24 12-44 % Monocytes (%) (Auto) 11 0-12 % Eosinophils (%) (Auto) 1 0-10 % Basophils (%) (Auto) 1 0-10 % Neutrophils # (Auto) 2.7 1.8-7.8 10^3/uL Lymphocytes # (Auto) 1.0 1.0-4.0 10^3/uL Monocytes # (Auto) 0.5 0.0-1.0 10^3/uL Eosinophils # (Auto) 0.0 0.0-0.3 10^3/uL Basophils # (Auto) 0.0 0.0-0.1 10^3/uL Immature Granulocyte # (Auto) 0.0 0.0-0.1 10^3/uL Sodium Level 134 L 135-145 MMOL/L Potassium Level 4.2 3.6-5.0 MMOL/L Chloride Level 99 98-107 MMOL/L Carbon Dioxide Level 19 L 21-32 MMOL/L Anion Gap 16 H 5-14 MMOL/L Blood Urea Nitrogen 7 7-18 MG/DL Creatinine 0.67 0.60-1.30 MG/DL Estimat Glomerular Filtration Rate 111 BUN/Creatinine Ratio 10 Glucose Level 93 70-105 MG/DL Lactic Acid Level 2.25 *H 0.50-2.00 MMOL/L Calcium Level 9.8 8.5-10.1 MG/DL Corrected Calcium 8.5-10.1 MG/DL Magnesium Level 1.7 1.6-2.4 MG/DL Total Bilirubin 1.2 H 0.1-1.0 MG/DL Aspartate Amino Transf (AST/SGOT) 103 H 5-34 U/L Alanine Aminotransferase (ALT/SGPT) 54 0-55 U/L Alkaline Phosphatase 123 40-136 U/L Troponin I < 0.30 <0.30 NG/ML C-Reactive Protein 0.42 <0.50 MG/DL Total Protein 7.8 6.4-8.2 GM/DL Albumin 4.8 H 3.2-4.5 GM/DL Lipase 18 8-78 U/L Serum Alcohol 233 H <10 MG/DL Group A Streptococcus Screen NEGATIVE NEGATIVE Urine Color YELLOW Urine Clarity CLEAR Urine pH 6.0 5-9 Urine Specific [place] 1.010 L 1.016-1.022 Urine Protein NEGATIVE NEGATIVE Urine Glucose (UA) NEGATIVE NEGATIVE Urine Ketones NEGATIVE NEGATIVE Urine Nitrite NEGATIVE NEGATIVE Urine Bilirubin NEGATIVE NEGATIVE Urine Urobilinogen 0.2 < = 1.0 MG/DL Urine Leukocyte Esterase NEGATIVE NEGATIVE Urine RBC (Auto) NEGATIVE NEGATIVE Urine RBC NONE /HPF Urine WBC 0-2 /HPF Urine Squamous Epithelial Cells 2-5 /HPF Urine Crystals NONE /LPF Urine Bacteria NEGATIVE /HPF Urine Casts PRESENT /LPF Urine Hyaline Casts 5-10 H /LPF Urine Mucus SMALL H /LPF Urine Culture Indicated NO Influenza Type A Antigen NEGATIVE NEGATIVE Influenza Type B Antigen NEGATIVE NEGATIVE My Orders Orders - CHANEL,NAYANA L DO Alcohol (12/17/21 10:49) Cbc With Automated Diff (12/17/21 10:49) Comprehensive Metabolic Panel (12/17/21 10:49) Lactic Acid Analyzer (12/17/21 10:49) Lipase (12/17/21 10:49) Magnesium (12/17/21 10:49) Rapid Strep A Screen (12/17/21 10:49) Ua Culture If Indicated (12/17/21 10:49) Crp Fs (12/17/21 10:49) Influenza A & B Antigens (12/17/21 10:49) Ondansetron Injection (Zofran Injectio (12/17/21 11:00) Lactated Ringers (Lr 1000 Ml Iv Solution (12/17/21 10:49) Famotidine Injection (Pepcid Injection) (12/17/21 10:49) Troponin I Fs (12/17/21 10:49) Ekg Tracing (12/17/21 10:49) Monitor-Rhythm Ecg Trace Only (12/17/21 10:49) Acute Abd Series (12/17/21 10:49) Medications Given in ED Current Medications Medications Dose Ordered Sig/Blu Route Start Time Stop Time Status Last Admin Dose Admin Ondansetron HCl 4 mg ONCE ONCE IVP 12/17/21 11:00 12/17/21 11:03 DC 12/17/21 10:59 4 MG Vital Signs/I&O 12/17/21 10:45 Temp 36.2 Pulse 82 Resp 20 B/P (MAP) 167/95 (119) Pulse Ox 99 O2 Delivery Room Air Capillary Refill : Progress Note : Progress Note Patient's symptoms are consistent with a GI bug and likely some alcoholic gastritis and alcohol intake. Patient had no acute findings on exam. Patient feeling better following treatment. He should continue his daily Protonix. I did recommend he consider getting help to stop drinking. Patient stable discha rged ECG Initial ECG Impression Date: December 17, 2021 Initial ECG Impression Time: 10:51 Initial ECG Rate: 68 Initial ECG Rhythm: Normal Sinus Initial ECG Intervals: Normal Initial ECG Impression: Normal Diagnostic Imaging Diagonstic Imaging: Xray Plain Films/CT/US/NM/MRI: chest, abdomen Comments Date of Exam:12/17/21 ACUTE ABD SERIES EXAMINATION: Abdominal series and chest radiograph HISTORY: vomiting, abd pain COMPARISON: 05/21/2019 FINDINGS: Heart size and pulmonary vasculature are normal. The lungs are clear without consolidation, pleural effusion, or pneumothorax. The osseous structures are intact. There is moderate amount of gas and stool throughout the colon. Nonobstructive bowel gas pattern. No radiopaque foreign body. Surgical changes from right hip arthroplasty. Right upper quadrant cholecystectomy clips are present. IMPRESSION: No acute abnormality in the chest or abdomen. Departure Impression Primary Impression: Alcoholism Additional Impressions: Gastroenteritis Alcoholic gastritis Qualified Codes: K29.20 - Alcoholic gastritis without bleeding Disposition: HOME, SELF-CARE Condition: Stable Departure-Patient Inst. Referrals: LOUANN DENIS DO (PCP/Family) Primary Care Physician Patient Instructions: ALCOHOL AND SUBSTANCE ABUSE, Alcohol Use Disorder ED, Diarrhea in Adolescents and Adults, Viral Gastroenteritis Add. Discharge Instructions: Please continue Protonix Follow-up with your primary care provider for continued treatment as needed Please consider getting help with your alcohol use All discharge instructions reviewed with patient and/or family. Voiced understanding. NAYANA CHANEL DO December 17, 2021 11:00
[2021-12-17 11:01] LABS: BASOPHILS % (AUTO) 1 % (0-10); EOSINOPHILS % (AUTO) 1 % (0-10); HEMATOCRIT 41 % (40-54); HEMOGLOBIN 14.6 g/dL (13.3-17.7); LYMPHOCYTES % (AUTO) 24 % (12-44); MEAN CORPUSCULAR HEMOGLOBIN 34 pg (25-34); MEAN CORPUSCULAR HGB CONC 35 g/dL (32-36); MEAN CORPUSCULAR VOLUME 96 fL (80-99); MEAN PLATELET VOLUME 10.7 fL (9.0-12.2); MONOCYTES # (AUTO) 0.5 10^3/uL (0.0-1.0); MONOCYTES % (AUTO) 11 % (0-12); NEUTROPHILS # (AUTO) 2.7 10^3/uL (1.8-7.8); NEUTROPHILS % (AUTO) 63 % (42-75); PLATELET COUNT 101 10^3/uL (130-400); WHITE BLOOD COUNT 4.3 10^3/uL (4.3-11.0)
[2021-12-17 11:04] LABS: BILIRUBIN,URINE NEGATIVE (NEGATIVE); CLARITY,URINE CLEAR; COLOR,URINE YELLOW; GLUCOSE, URINE (UA) NEGATIVE (NEGATIVE); KETONES,URINE NEGATIVE (NEGATIVE); LEUKOCYTE ESTERASE ,URINE NEGATIVE (NEGATIVE); NITRITE,URINE NEGATIVE (NEGATIVE); PROTEIN,URINE NEGATIVE (NEGATIVE)
--- NOTE | 2021-12-17 11:23 | Diagnostic Imaging Report ---
EXAMINATION: Abdominal series and chest radiograph HISTORY: vomiting, abd pain COMPARISON: 05/21/2019 FINDINGS: Heart size and pulmonary vasculature are normal. The lungs are clear without consolidation, pleural effusion, or pneumothorax. The osseous structures are intact. There is moderate amount of gas and stool throughout the colon. Nonobstructive bowel gas pattern. No radiopaque foreign body. Surgical changes from right hip arthroplasty. Right upper quadrant cholecystectomy clips are present. IMPRESSION: No acute abnormality in the chest or abdomen. Dictated by: Dictated on workstation # [id number]
[2021-12-17 11:26] LABS: BACTERIA,URINE NEGATIVE /HPF; WBC,URINE 0-2 /HPF
[2021-12-17 11:40] LABS: BUN/CREATININE RATIO 10; CARBON DIOXIDE 19 MMOL/L (21-32); CHLORIDE 99 MMOL/L (98-107); CREATININE SERUM 0.67 MG/DL (0.60-1.30); GFR ESTIMATED 111; GLUCOSE 93 MG/DL (70-105); POTASSIUM 4.2 MMOL/L (3.6-5.0); SODIUM 134 MMOL/L (135-145)
[2021-12-17 11:41] LABS: ALANINE AMINOTRANSFERASE 54 U/L (0-55); ALBUMIN 4.8 GM/DL (3.2-4.5); ALKALINE PHOSPHATASE 123 U/L (40-136); BILIRUBIN,TOTAL 1.2 MG/DL (0.1-1.0); CALCIUM 9.8 MG/DL (8.5-10.1); MAGNESIUM 1.7 MG/DL (1.6-2.4); TOTAL PROTEIN 7.8 GM/DL (6.4-8.2)
[2021-12-17 12:02] LABS: LIPASE 18 U/L (8-78)
[2021-12-17 12:24] VITALS: BP 132/84
== END 2021-12-17 12:23 | disposition home or self-care (01) ==
LOC: EDUNIT# 10:45 → ER FS 10:46
DX: S20.212A Contusion of left front wall of thorax, initial encounter (principal); K52.9 Noninfective gastroenteritis and colitis, unspecified; K29.20 Alcoholic gastritis without bleeding; F10.20 Alcohol dependence, uncomplicated; R17 Unspecified jaundice; Y90.7 Blood alcohol level of 200-239 mg/100 ml; Y07.9 Unspecified perpetrator of maltreatment and neglect
CPT/HCPCS: 36415; 74022; 80053; 81000; 83605; 83690; 83735; 84484; 85025; 86141; 87430; 87804; 93005; 93041; 99284; G0480; 80320

== ENCOUNTER 2022-04-25 09:39 | Emergency (ER) | payer MEDICARE, MEDICAID ==
[~2022-04-25] VITALS: Ht 172 cm; Wt 78.9 kg
[2022-04-25 09:47] VITALS: BP 170/113
--- NOTE | 2022-04-25 09:48 | ED Integumentary General ---
General Stated Complaint: LT ARM DOG BITE History of Present Illness Date Seen by Provider: Apr 25, 2022 Time Seen by Provider: 09:46 Initial Comments 56-year-old male presents with dog bite to the left arm. 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 Patient has approximately 5 puncture wounds circumferential to the left forearm. Patient has full range of motion. He is up-to-date on his tetanus. He suffered no other injury. Allergies and Home Medications Allergies Coded Allergies: No Known Drug Allergies (Unverified , 03/10/19) Patient Home Medication List Home Medication List Reviewed: Yes Amoxicillin/Potassium Clav (Amox Tr-K Clv 875-125 mg Tab) 875 Mg-125 Mg Tablet, 1 EACH PO BID Prescribed by: NAYANA CHANEL on 04/25/22 1014 Bimatoprost (Lumigan) 2.5 Ml Drops, 1 DROP OU DAILY, (Reported) Entered as Reported by: RACQUEL GROVES on 03/10/19 0845 Ciprofloxacin HCl (Ciprofloxacin HCl) 500 Mg Tablet, 500 MG PO BID Prescribed by: MIRYAM GREWAL on 06/07/20 1106 Diclofenac Sodium (Diclofenac Sodium) 75 Mg Tablet.dr, 75 MG PO BID Prescribed by: MIRYAM GREWAL on 06/07/20 1106 Hydrocodone Bit/Acetaminophen (HYDROcodone/APAP 7.5/325 TAB) 1 Each Tablet, 1-2 TAB PO Q4H Prescribed by: SONIA UNGER on 03/17/19 0926 Levothyroxine Sodium (Levothyroxine Sodium) 50 Mcg Tablet, 50 MCG PO DAILY, (Reported) Entered as Reported by: RACQUEL GROVES on 03/10/19 0845 Lisinopril/Hydrochlorothiazide (Lisinopril-Hctz 10-12.5 mg Tab) 1 Each Tablet, 2 EACH PO DAILY, (Reported) Entered as Reported by: RACQUEL GROVES on 03/10/19 0845 Metronidazole (Flagyl) 500 Mg Tablet, 500 MG PO TID Prescribed by: MIRYAM GREWAL on 06/07/20 1106 Pantoprazole Sodium (Protonix) 40 Mg Tablet.dr, 40 MG PO DAILY Prescribed by: SONIA UNGER on 03/17/19 1149 Review of Systems Review of Systems Constitutional: no symptoms reported Respiratory: no symptoms reported Cardiovascular: no symptoms reported Gastrointestinal: no symptoms reported Musculoskeletal: see HPI Skin: change in color Psychiatric/Neurological: No Symptoms Reported Endocrine: No Symptoms Reported Past Qnqjjxe-Ochnub-Ggimjg Hx Immunizations Up To Date First/Initial COVID19 Vaccinat: 2020 Second COVID19 Vaccination Noel: 2020 Seasonal Allergies Seasonal Allergies: No Past Medical History Surgery/Hospitalization HX: BACK SX Surgeries: Yes (R knee scope, back sx) Gallbladder Respiratory: No Cardiac: Yes Hypertension Neurological: No Genitourinary: No Gastrointestinal: Yes (epigastric pain) Gastroesophageal Reflux, Cirrhosis Musculoskeletal: No Endocrine: Yes Hypothyroidsim HEENT: Yes Glaucoma Cancer: No Psychosocial: No Integumentary: No Blood Disorders: No Physical Exam Vital Signs Vital Signs - First Documented 04/25/22 09:47 Temp 35.4 Pulse 78 Resp 18 B/P (MAP) 170/113 (132) Pulse Ox 97 O2 Delivery Room Air Capillary Refill : General Appearance: WD/WN, no apparent distress Neck: full range of motion Cardiovascular: normal peripheral pulses, regular rate, rhythm Respiratory: lungs clear, normal breath sounds Gastrointestinal: non tender, soft; No distended Extremities: swelling (Left forearm) Neurologic/Psychiatric: alert, normal mood/affect, oriented x 3 Skin: tattoos/piercings Skin Problem Location: upper extremities (Left forearm) Skin Problem Character: other (Approximately 5-6 puncture wounds left forearm) Procedures/Interventions Wound's Depth, Shape: irregular Wound Explored: no foreign body removed Betadine Prep?: Yes Anesthesia: 1% Lidocaine Volume Anesthetic (ccs): 3 Suture: Ethlion Suture Size: 4-0 Number of Sutures: 5 Patient with 1 irregular laceration on anterior aspect of the forearm that required 3 sutures and 2 other puncture wounds on the posterior aspect of the forearm that had 1 small suture each for total of 5 sutures. Progress/Results/Core Measures Results/Orders Vital Signs/I&O 04/25/22 09:47 Temp 35.4 Pulse 78 Resp 18 B/P (MAP) 170/113 (132) Pulse Ox 97 O2 Delivery Room Air Progress Progress Note : Progress Note Patient physical exam shows he is neurovascular intact with full range of motion. Patient had multiple puncture wounds but 3 of them that needed sutured. Patient tolerated procedure well. Patient was started on Augmentin for empiric antibiotic. He should follow-up in about 8 to 10 days for suture removal sooner if any signs of infection or concerns. Patient was stable and discharged home Departure Impression Primary Impression: Dog bite Qualified Codes: W54.0XXA - Bitten by dog, initial encounter Disposition: 01 HOME, SELF-CARE Condition: Stable Departure-Patient Inst. Referrals: LOUANN DENIS DO (PCP/Family) Primary Care Physician Patient Instructions: Animal Bites (DC) Add. Discharge Instructions: Keep clean with warm soapy water Please take prescribed antibiotics until finished Please return to the ER or see your primary care provider in 8 to 10 days for suture removal Follow-up if wound develops any purulent drainage or significant redness and warmth. Scripts Amoxicillin/Potassium Clav (Amox Tr-K Clv 875-125 mg Tab) 875 Mg-125 Mg Tablet 1 EACH PO BID, #14 TAB Prov: NAYANA CHANEL DO 04/25/22 NAYANA CHANEL DO Apr 25, 2022 09:48
[2022-04-25] MEDS ORDERED: AMOX1TAB12 PO (10:14)
== END 2022-04-25 10:25 | disposition home or self-care (01) ==
LOC: EDUNIT# 09:39 → ER FS 09:40
DX: S51.852A Open bite of left forearm, initial encounter (principal); W54.0XXA Bitten by dog, initial encounter; Y92.511 Restaurant or cafe as the place of occurrence of the external cause
CPT/HCPCS: 12001

== ENCOUNTER 2022-11-16 20:31 | Emergency (ER) | payer MEDICARE, MEDICAID ==
[~2022-11-16] VITALS: Ht 170 cm; Wt 77.3 kg
[~2022-11-16 20:31] MED LIST changes: +AMOX1TAB12 PO
[2022-11-16] MEDS ORDERED: PANTOPRAZOLE 40 MG (PROTONIX) VIAL IV ONE ×2 (21:00→22:30)
[2022-11-16] MEDS ORDERED: NS IV 1000 ML 1,000 ML IV SCH ×2 (21:00→22:30)
[2022-11-16] MEDS ORDERED: ONDANSETRON 4 MG/2 ML (SDV) Z0FRAN IVP ONE ×2 (21:00→22:30)
--- NOTE | 2022-11-16 21:18 | ED GI ---
General Chief Complaint: Abdominal/GI Problems Stated Complaint: VOMITING - BLOOD IN STOOL Nursing Triage Note: PATENT COMPLAINT OF ABDOMINAL PAIN X3 DAYS. PATIENT STATES HE IS VOMITTING AND HAS DIARRHEA BOTH DARK RED Source of Information: Patient, Other (BROTHER ) Exam Limitations: Other (PT IS LIMITED HISTORIAN) History of Present Illness Date Seen by Provider: Nov 16, 2022 Time Seen by Provider: 21:00 Initial Comments PT ARRIVES VIA POV FROM HOME WITH BROTHER PT STATES THAT FOR THE LAST 3 DAYS, HE HAS BEEN VOMITING UP BLOOD AND HAVING BLACK STOOLS HAS HAD VOMITED AT LEAST 4-5 TIMES TODAY, AND HAD 3-4 BM'S TODAY C/O DIFFUSE ABDOMINAL PAIN NO FEVER PT HAS HISTORY OF CIRRHOSIS, CONTINUES TO DRINK AT LEAST A 30 PACK OF BEER/DAY. HE HAS HISTORY OF SEVERE GASTRITIS, WELL ESOPHAGEAL VARICES--NOTED ON EGD DONE 03/17/2019. . HE DENIES HISTORY OF SEIZURES, BUT DOES GET THE SHAKES AND SWEATS IF HE GOES TOO LONG WITHOUT ALCOHOL. PT STATES THE ONLY TIME HE TRIED TO STOP DRINKING WAS "TOO MANY YEARS AGO TO REMEMBER" . HE ALSO USES MARIJUANA DAILY HE HAS NOT SOUGHT CARE UNTIL TODAY SYMPTOMS NO DIFFERENT TODAY, BROTHER MADE HIM COME HERE TODAY. HE CLAIMS NO ALCOHOL OR MARIJUANA TODAY--BROTHER REPORTS THAT PT HAS HAD "2 BEERS" TODAY PT HAS HISTORY OF HTN HE HAS HAD RIGHT HIP REPLACEMENT PCP: DR. DENIS IN [place]. Allergies and Home Medications Allergies Coded Allergies: No Known Drug Allergies (Unverified , 03/10/19) Patient Home Medication List Home Medication List Reviewed: Yes Amoxicillin/Potassium Clav (Amox Tr-K Clv 875-125 mg Tab) 875 Mg-125 Mg Tablet, 1 EACH PO BID Prescribed by: NAYANA CHANEL on 04/25/22 1014 Bimatoprost (Lumigan) 2.5 Ml Drops, 1 DROP OU DAILY, (Reported) Entered as Reported by: RACQUEL GROVES on 03/10/19 0845 Ciprofloxacin HCl (Ciprofloxacin HCl) 500 Mg Tablet, 500 MG PO BID Prescribed by: MIRYAM GREWAL on 06/07/20 1106 Diclofenac Sodium (Diclofenac Sodium) 75 Mg Tablet.dr, 75 MG PO BID Prescribed by: MIRYAM GREWAL on 06/07/20 1106 Hydrocodone Bit/Acetaminophen (HYDROcodone/APAP 7.5/325 TAB) 1 Each Tablet, 1-2 TAB PO Q4H Prescribed by: SONIA UNGER on 03/17/19 0926 Levothyroxine Sodium (Levothyroxine Sodium) 50 Mcg Tablet, 50 MCG PO DAILY, (Reported) Entered as Reported by: RACQUEL GROVES on 03/10/19 0845 Lisinopril/Hydrochlorothiazide (Lisinopril-Hctz 10-12.5 mg Tab) 1 Each Tablet, 2 EACH PO DAILY, (Reported) Entered as Reported by: RACQUEL GROVES on 03/10/19 0845 Metronidazole (Flagyl) 500 Mg Tablet, 500 MG PO TID Prescribed by: MIRYAM GREWAL on 06/07/20 1106 Pantoprazole Sodium (Protonix) 40 Mg Tablet.dr, 40 MG PO DAILY Prescribed by: SONIA UNGER on 03/17/19 1149 Review of Systems Review of Systems Constitutional: see HPI; No dizziness; malaise, weakness EENTM: No Symptoms Reported Respiratory: No Symptoms Reported Cardiovascular: No Symptoms Reported Gastrointestinal: See HPI, Nausea, Vomiting, Other (VOMITING BRIGHT RED BLOOD AND STOOLS HAVE BEEN BLACK AND TARRY ) Genitourinary: No Symptoms Reported Musculoskeletal: no symptoms reported Skin: no symptoms reported Psychiatric/Neurological: No Symptoms Reported Endocrine: No Symptoms Reported Hematologic/Lymphatic: No Symptoms Reported Past Eenrosw-Xdmiii-Zerfzz Hx Patient Social History Tobacco Use?: No Substance use?: Yes Substance type: Marijuana Additional substance use comme: LAST TIME SMOKED MARIJUANA 11/12/2022 Substance frequency: Daily Alcohol Use?: Yes Alcohol type: Beer, Hard Liquor Alcohol Frequency: Daily Immunizations Up To Date First/Initial COVID19 Vaccinat: 2020 Second COVID19 Vaccination Noel: 2020 Third COVID19 Vaccination Date: 2020 Seasonal Allergies Seasonal Allergies: No Past Medical History Surgery/Hospitalization HX: BACK SX, CIRRHOSIS Surgeries: Yes (R knee scope, back sx) Gallbladder, Orthopedic Respiratory: No Cardiac: Yes Hypertension Neurological: No Genitourinary: No Gastrointestinal: Yes (GASTRITIS) Gastroesophageal Reflux, Hemorrhoids, Esophageal Varices, Cirrhosis Musculoskeletal: Yes (BACK SURGERY; R HIP FX; R KNEE SCOPE) Chronic Back Pain, Fractures Endocrine: Yes Hypothyroidsim HEENT: Yes Glaucoma Cancer: No Psychosocial: Yes (ALCOHOLISM AND MARIJUANA USE) Integumentary: No Blood Disorders: No Family Medical History SOCIAL HISTORY: -SMOKING--DENIES USE -ETOH-- 30 PACK/DAY ALL OF LIFE -MARIJUANA--DAILY USE PAST SURGICAL HISTORY: -03/17/2019--CHOLECYSTECTOMY, WITH EGD AND COLONOSCOPY BY DR. URIBE ( MODERATE TO SEVERE GASTRITIS, GRADE 3 ESOPHAGEAL VARICES, HEMORRHOIDS) -RIGHT KNEE SCOPE -BACK SURGERY -05/07/2021--RIGHT HIP FRACTURE Physical Exam Vital Signs Vital Signs - First Documented 11/16/22 11/17/22 20:46 02:00 Temp 36.6 Pulse 94 Resp 20 B/P (MAP) 160/91 (114) Pulse Ox 99 O2 Delivery Room Air Capillary Refill : Less Than 3 Seconds Height/Weight/BMI Height: 5'7.00" Weight: 160lbs. 0.0oz. 72.623691cy; 26.00 BMI Method: General Appearance: WD/WN, other (ACTIVELY VOMITING BRIGHT RED BLOOD ON ARRIVAL--NO EMESIS, ONLY PURE BLOOD, NO CLOTS. STRONG ODOR OF ETOH. ) HEENT: PERRL/EOMI, scleral icterus (R), scleral icterus (L) Neck: normal inspection Respiratory: normal breath sounds, no respiratory distress, no accessory muscle use Cardiovascular: regular rate, rhythm, no murmur Gastrointestinal: No guarding, No rebound; tenderness (DIFFUSE UPPER ABDOMINAL TENDERNESS. ); No hernia, No mass; other (ABDOMEN SOMEWHAT FIRM) Extremities: normal inspection, normal capillary refill Back: no CVA tenderness Neurologic/Psychiatric: tmh teacher II-XII nml as tested, no motor/sensory deficits, alert, oriented x 3 (SOMEWHAT SLOW MENTATION. ), other (TREMORS. ) Skin: warm/dry, other (SALLOW. ) Procedures/Interventions Suture Size: 4-0 Progress/Results/Core Measures Results/Orders Lab Results Laboratory Tests Test 11/16/22 21:25 11/16/22 22:14 11/17/22 01:05 Range/Units White Blood Count 8.8 5.5 4.3-11.0 10^3/uL Red Blood Count 3.02 L 2.21 L 4.30-5.52 10^6/uL Hemoglobin 10.8 L 7.8 #L 13.3-17.7 g/dL Hematocrit 29 L 21 L 40-54 % Mean Corpuscular Volume 96 97 80-99 fL Mean Corpuscular Hemoglobin 36 H 35 H 25-34 pg Mean Corpuscular Hemoglobin Concent 37 H 36 32-36 g/dL Red Cell Distribution Width 12.6 12.9 10.0-14.5 % Platelet Count 85 L 49 L 130-400 10^3/uL Mean Platelet Volume 12.2 12.6 H 9.0-12.2 fL Immature Granulocyte % (Auto) 0 % Neutrophils (%) (Auto) 84 H 42-75 % Lymphocytes (%) (Auto) 9 L 12-44 % Monocytes (%) (Auto) 7 0-12 % Eosinophils (%) (Auto) 0 0-10 % Basophils (%) (Auto) 0 0-10 % Neutrophils # (Auto) 7.3 1.8-7.8 10^3/uL Lymphocytes # (Auto) 0.8 L 1.0-4.0 10^3/uL Monocytes # (Auto) 0.6 0.0-1.0 10^3/uL Eosinophils # (Auto) 0.0 0.0-0.3 10^3/uL Basophils # (Auto) 0.0 0.0-0.1 10^3/uL Immature Granulocyte # (Auto) 0.0 0.0-0.1 10^3/uL Percent Immature Platelet Fraction 16.9 H 15.4 H 0.0-7.6 % Erythrocyte Sedimentation Rate 31 H 0-30 MM/HR Prothrombin Time 15.9 H 12.2-14.7 SEC INR Comment 1.2 0.8-1.4 Activated Partial Thromboplast Time 42 H 24-35 SEC Sodium Level 117 *L 124 *L 135-145 MMOL/L Potassium Level 4.1 4.1 3.6-5.0 MMOL/L Chloride Level 86 L 96 L 98-107 MMOL/L Carbon Dioxide Level 17 L 16 L 21-32 MMOL/L Anion Gap 14 12 5-14 MMOL/L Blood Urea Nitrogen 11 9 7-18 MG/DL Creatinine 0.68 0.63 0.60-1.30 MG/DL Estimat Glomerular Filtration Rate 110 112 BUN/Creatinine Ratio 16 14 Glucose Level 99 89 70-105 MG/DL Calcium Level 8.7 7.3 L 8.5-10.1 MG/DL Corrected Calcium 8.8 8.5-10.1 MG/DL Magnesium Level 1.7 1.6-2.4 MG/DL Total Bilirubin 2.7 H 0.1-1.0 MG/DL Aspartate Amino Transf (AST/SGOT) 139 H 5-34 U/L Alanine Aminotransferase (ALT/SGPT) 61 H 0-55 U/L Alkaline Phosphatase 133 40-136 U/L C-Reactive Protein High Sensitivity 1.52 H 0.00-0.50 MG/DL Total Protein 7.1 6.4-8.2 GM/DL Albumin 3.9 3.2-4.5 GM/DL Amylase Level 29 25-125 U/L Lipase 19 8-78 U/L Acetaminophen Level < 10 L 10-30 UG/ML Serum Alcohol 169 H <10 MG/DL Urine Color YELLOW Urine Clarity CLEAR Urine pH 6.0 5-9 Urine Specific Bim <=1.005 1.016-1.022 Urine Protein NEGATIVE NEGATIVE Urine Glucose (UA) NEGATIVE NEGATIVE Urine Ketones TRACE H NEGATIVE Urine Nitrite NEGATIVE NEGATIVE Urine Bilirubin NEGATIVE NEGATIVE Urine Urobilinogen 0.2 < = 1.0 MG/DL Urine Leukocyte Esterase NEGATIVE NEGATIVE Urine RBC (Auto) NEGATIVE NEGATIVE Urine RBC NONE /HPF Urine WBC NONE /HPF Urine Squamous Epithelial Cells RARE /HPF Urine Crystals NONE /LPF Urine Bacteria TRACE /HPF Urine Casts NONE /LPF Urine Mucus NEGATIVE /LPF Urine Culture Indicated NO Urine Opiates Screen NEGATIVE NEGATIVE Urine Oxycodone Screen NEGATIVE NEGATIVE Urine Methadone Screen NEGATIVE NEGATIVE Urine Propoxyphene Screen NEGATIVE NEGATIVE Urine Barbiturates Screen NEGATIVE NEGATIVE Ur Tricyclic Antidepressants Screen NEGATIVE NEGATIVE Urine Phencyclidine Screen NEGATIVE NEGATIVE Urine Amphetamines Screen NEGATIVE NEGATIVE Urine Methamphetamines Screen NEGATIVE NEGATIVE Urine Benzodiazepines Screen NEGATIVE NEGATIVE Urine Cocaine Screen NEGATIVE NEGATIVE Urine Cannabinoids Screen POSITIVE H NEGATIVE My Orders Orders - FARAZ MERIDA DO Ed Iv/Invasive Line Start (11/16/22 20:58) Monitor-Rhythm Ecg Trace Only (11/16/22 20:58) Acetaminophen (11/16/22 20:58) Alcohol (11/16/22 20:58) Amylase (11/16/22 20:58) Cbc With Automated Diff (11/16/22 20:58) Comprehensive Metabolic Panel (11/16/22 20:58) Hs C Reactive Protein (11/16/22 20:58) Drug Screen Stat (Urine) (11/16/22 20:58) Lipase (11/16/22 20:58) Magnesium (11/16/22 20:58) Protime With Inr (11/16/22 20:58) Partial Thromboplastin Time (11/16/22 20:58) Ua Culture If Indicated (11/16/22 20:58) Erythrocyte Sedimentation Rate (11/16/22 20:58) Ed Iv/Invasive Line Start (11/16/22 20:58) Ns Iv 1000 Ml (Sodium Chloride 0.9%) (11/16/22 21:00) Ondansetron Injection (Zofran Injectio (11/16/22 21:00) Pantoprazole Injection (Protonix Injecti (11/16/22 21:00) Pantoprazole Injection (Protonix Injecti (11/16/22 22:30) Ondansetron Injection (Zofran Injectio (11/16/22 22:30) Ct Chest/Abdomen/Pelvis W (11/16/22 22:28) Ed Iv/Invasive Line Start (11/16/22 22:29) Ns Iv 1000 Ml (Sodium Chloride 0.9%) (11/16/22 22:30) Promethazine Injection (Phenergan Injec (11/16/22 23:00) Iohexol Injection (Omnipaque 350 Mg/Ml 1 (11/16/22 23:45) Received Contrast (Hold Metformin- Contr (11/16/22 23:45) Ns (Ivpb) (Sodium Chloride 0.9% Ivpb Bag (11/16/22 23:45) Ed Iv/Invasive Line Start (11/17/22 00:09) Ns Iv 1000 Ml (Sodium Chloride 0.9%) (11/17/22 00:15) Cbc No Diff (11/17/22 00:47) Basic Metabolic Panel (11/17/22 00:47) Octreotide Injection (Sandostatin Inje (11/17/22 01:00) Ns (Ivpb) (Sodium C... W/Octreotide Inj (11/17/22 01:00) Ns (Ivpb) (Sodium C... W/Pantoprazole In (11/17/22 01:00) Lorazepam Injection (Ativan Injection) (11/17/22 01:15) Medications Given in ED Current Medications Medications Dose Ordered Sig/Blu Route Start Time Stop Time Status Last Admin Dose Admin Iohexol 100 ml ONCE ONCE IV 11/16/22 23:45 11/16/22 23:55 DC 11/16/22 23:47 80 ML Lorazepam 2 mg ONCE ONCE IVP 11/17/22 01:15 11/17/22 01:16 DC 11/17/22 01:20 2 MG Octreotide Acetate 50 mcg/ Sodium Chloride 51 ml @ 204 mls/hr ONCE ONCE IV 11/17/22 01:00 11/17/22 01:14 DC 11/17/22 02:08 204 MLS/HR Ondansetron HCl 4 mg ONCE ONCE IVP 11/16/22 21:00 11/16/22 21:01 DC 11/16/22 21:27 4 MG Ondansetron HCl 8 mg ONCE ONCE IVP 11/16/22 22:30 11/16/22 22:31 DC 11/16/22 22:40 8 MG Pantoprazole 40 mg ONCE ONCE IV 11/16/22 21:00 11/16/22 21:01 DC 11/16/22 21:27 40 MG Pantoprazole 40 mg ONCE ONCE IV 11/16/22 22:30 11/16/22 22:31 DC 11/16/22 22:40 40 MG Promethazine HCl 25 mg ONCE ONCE IVP 11/16/22 23:00 11/16/22 23:01 DC 11/16/22 23:12 25 MG Sodium Chloride 100 ml ONCE ONCE IV 11/16/22 23:45 11/16/22 23:55 DC 11/16/22 23:47 80 ML Vital Signs/I&O 11/16/22 11/17/22 20:46 02:00 Temp 36.6 Pulse 94 90 Resp 20 14 B/P (MAP) 160/91 (114) 98/58 Pulse Ox 99 98 O2 Delivery Room Air Room Air 11/17/22 00:00 Intake Total 2000 ml Balance 2000 ml Blood Pressure Mean: 114 Progress Progress Note : Progress Note PLACED IN ISOLATION ROOM PPE WORN GIVEN: -IV FLUIDS -ZOFRAN -PROTONIX BOLUS GIVEN AND DRIP ORDERED -PHENERGAN -OCTREOTIDE BOLUS AND DRIP ORDERED -ATIVAN FOR TREMORS. 2225--PT CONTINUES TO VOMIT PURE BLOOD, ADDITIONAL MEDICATIONS ORDERED. REPEAT LAB DONE--NA IS UP TO 124, HGB DOWN TO 7.8 VITALS ARE STABLE, WITH HR IN 80'S, BP 130'S/80'S, O2 SAT 99% ON ROOM AIR. AIR TRANSPORT IS ENROUTE, PT IS NO LONGER ACTIVELY VOMITING, AND VITALS ARE STABLE, WILL DEFER BLOOD TRANSFUSION TO RECEIVING HOSPITAL. REVIEWED PRIOR RECORDS--FEW ER VISITS, AND ADMIT FOR CHOLECYSTECTOMY/EGD/COLONOSCOPY. DISCUSSED TEST RESULTS WITH PT AND NEED FOR TRANSFER TO HIGHER LEVEL OF CARE WITH GI SPECIALTY SERVICES, AND HE AGREES TO PLAN. Diagnostic Imaging Comments CT ABDOMEN/PELVIS--PER [facility] VIA FAX AT 0039 --PROMINENT TRICIA-ESOPHAGEAL VARICES AND UPPER ABDOMINAL VARICES COMPATIBLE WITH PORTAL HYPERTENSION --HEPATIC CIRRHOSIS Reviewed: Reviewed by Ia Departure Communication (Admissions) 004--CALLED LASHANDA, LEFT MESSAGE ON MACHINE 004--[facility]AGING MAINTENANCE MECHAN[facility] 2ND SHIFT 0056--SPOKE WITH DR. LOUIE, MAINTENANCE MECHANIC 2ND SHIFT, ACCEPTS PT FOR TRANSFER, ADVISES PROTONIX DRIP AND OCTREOTIDE BOLUS AND DRIP. NO LOCAL GROUND EMS TRANSPORT SERVICES AVAILABLE. ER STAFF CONTACTING [facility]. 0208--AIR TRANSPORT HERE. Impression Primary Impression: Upper gastrointestinal bleed Additional Impressions: SEVERE HYPONATREMIA Alcohol intoxication in active alcoholic Hx of cirrhosis Marijuana use Elevated liver enzymes Esophageal varices in alcoholic cirrhosis Acute blood loss anemia Disposition: XFER SHT-TRM HOSP Condition: Stable Transfer Transfer Reason: Exceeds level of care (NEED FOR GI SPECIALTY SERVICES UNAVAILABLE HERE) Transfer Facility: [facility] Method of Transfer: Air Departure-Patient Inst. Referrals: LOUANN DENIS DO (PCP/Family) Primary Care Physician FARAZ MERIDA DO Nov 16, 2022 21:18
[2022-11-16 21:41] LABS: BASOPHILS % (AUTO) 0 % (0-10); EOSINOPHILS % (AUTO) 0 % (0-10); HEMATOCRIT 29 % (40-54); HEMOGLOBIN 10.8 g/dL (13.3-17.7); LYMPHOCYTES # (AUTO) 0.8 10^3/uL (1.0-4.0); LYMPHOCYTES % (AUTO) 9 % (12-44); MEAN CORPUSCULAR HEMOGLOBIN 36 pg (25-34); MEAN CORPUSCULAR HGB CONC 37 g/dL (32-36); MEAN CORPUSCULAR VOLUME 96 fL (80-99); MEAN PLATELET VOLUME 12.2 fL (9.0-12.2); MONOCYTES # (AUTO) 0.6 10^3/uL (0.0-1.0); MONOCYTES % (AUTO) 7 % (0-12); NEUTROPHILS # (AUTO) 7.3 10^3/uL (1.8-7.8); NEUTROPHILS % (AUTO) 84 % (42-75); PLATELET COUNT 85 10^3/uL (130-400); WHITE BLOOD COUNT 8.8 10^3/uL (4.3-11.0)
[2022-11-16 22:00] LABS: INR 1.2 (0.8-1.4); PROTHROMBIN TIME PATIENT 15.9 SEC (12.2-14.7)
[2022-11-16 22:05] LABS: ALBUMIN 3.9 GM/DL (3.2-4.5); POTASSIUM 4.1 MMOL/L (3.6-5.0)
[2022-11-16 22:06] LABS: CALCIUM 8.7 MG/DL (8.5-10.1)
[2022-11-16 22:08] LABS: TOTAL PROTEIN 7.1 GM/DL (6.4-8.2)
[2022-11-16 22:09] LABS: BILIRUBIN,TOTAL 2.7 MG/DL (0.1-1.0)
[2022-11-16 22:10] LABS: ERYTHROCYTE SEDIMENTATION RATE 31 MM/HR (0-30)
[2022-11-16 22:12] LABS: CREATININE SERUM 0.68 MG/DL (0.60-1.30)
[2022-11-16 22:14] LABS: MAGNESIUM 1.7 MG/DL (1.6-2.4)
[2022-11-16 22:23] LABS: BILIRUBIN,URINE NEGATIVE (NEGATIVE); CLARITY,URINE CLEAR; COLOR,URINE YELLOW; GLUCOSE, URINE (UA) NEGATIVE (NEGATIVE); KETONES,URINE TRACE (NEGATIVE); LEUKOCYTE ESTERASE ,URINE NEGATIVE (NEGATIVE); NITRITE,URINE NEGATIVE (NEGATIVE); PROTEIN,URINE NEGATIVE (NEGATIVE)
[2022-11-16 22:38] LABS: BACTERIA,URINE TRACE /HPF; SQUAMOUS EPITHELIAL CELL,UR RARE /HPF
[2022-11-16 22:44] LABS: AMPHETAMINE SCREEN, URINE NEGATIVE (NEGATIVE); BARBITURATE SCREEN URINE NEGATIVE (NEGATIVE); BENZODIAZEPINES SCREEN URINE NEGATIVE (NEGATIVE); CANNABINOID SCREEN, URINE POSITIVE (NEGATIVE); COCAINE SCREEN URINE NEGATIVE (NEGATIVE); OPIATE SCREEN URINE NEGATIVE (NEGATIVE)
[2022-11-16 22:45] LABS: METHADONE STAT NEGATIVE (NEGATIVE); OXYCODONE STAT NEGATIVE (NEGATIVE); PROPOXYPHENE STAT NEGATIVE (NEGATIVE); TRICYCLIC ANTIDEPRESSANTS SCRE NEGATIVE (NEGATIVE)
[2022-11-16] MEDS ORDERED: PROMETHAZINE INJ 25 MG/ML (PHENERGAN) AMP IVP ONE (23:00)
[2022-11-16] MEDS ORDERED: IOHEXOL 350 MG/ML 100 ML (OMNIPAQUE 350) VIAL IV ONE (23:45)
[2022-11-16] MEDS ORDERED: HOLD METFORMIN - RECEIVED CONTRAST 20 ML VIAL IV SCH (23:45)
[2022-11-16] MEDS ORDERED: NS 100 ML (IVPB) BAG IV ONE (23:45)
[2022-11-17] MEDS ORDERED: NS IV 1000 ML 1,000 ML IV SCH (00:15)
[2022-11-17] MEDS ORDERED: OCTREOTIDE INJECTION 50 MCG in NS (IVPB) 50 ML IV ONE (01:00)
[2022-11-17] MEDS ORDERED: PANTOPRAZOLE INJECTION 200 MG in NS (IVPB) 100 ML IV SCH (01:00)
[2022-11-17] MEDS ORDERED: OCTREOTIDE INJECTION 500 MCG in NS (IVPB) 99 ML IV SCH (01:00)
[2022-11-17] MEDS ORDERED: LORazepam INJ 2 MG/ML (ATIVAN) VIAL IVP ONE (01:15)
[2022-11-17 01:16] LABS: HEMOGLOBIN 7.8 g/dL (13.3-17.7); MEAN PLATELET VOLUME 12.6 fL (9.0-12.2); WHITE BLOOD COUNT 5.5 10^3/uL (4.3-11.0)
[2022-11-17 01:22] LABS: POTASSIUM 4.1 MMOL/L (3.6-5.0)
[2022-11-17 01:23] LABS: CALCIUM 7.3 MG/DL (8.5-10.1)
[2022-11-17 01:28] LABS: CREATININE SERUM 0.63 MG/DL (0.60-1.30)
[2022-11-17 02:00] VITALS: BP 98/58
--- NOTE | 2022-11-17 07:37 | Diagnostic Imaging Report ---
PROCEDURE: CT chest, abdomen, and pelvis with contrast. TECHNIQUE: Multiple contiguous axial images were obtained through the chest, abdomen, and pelvis after the administration of intravenous contrast. Auto Exposure Controls were utilized during the CT exam to meet ALARA standards for radiation dose reduction. INDICATION: Followup hematemesis, severe gastritis, abdominal pain, history of varices. COMPARISON: CT abdomen and pelvis 01/01/2021. DISCUSSION: CHEST: The lungs are well-aerated. No consolidation or suspicious pulmonary lesion. Thoracic aorta is normal in caliber and configuration. Normal heart size. No pleural or pericardial fluid. No adenopathy. Mild bilateral gynecomastia is noted. Paraesophageal varices are increased from the prior exam. No osseous abnormality identified. ABDOMEN/PELVIS: Changes of cirrhosis are again noted. No discrete liver mass. The gallbladder is surgically absent. The pancreas, stomach, spleen, and adrenal glands are unremarkable. Left renal cyst noted. No renal stone or hydronephrosis. The aorta is normal in caliber. Large and small bowel loops appear within normal limits. The bladder and prostate are unremarkable. Right hip prosthesis is noted. No acute osseous abnormality identified. No ascites or adenopathy. IMPRESSION: 1. Stable changes of cirrhosis with worsening paraesophageal varices. 2. Agree with preliminary report. Dictated by: Dictated on workstation # [id number]
== END 2022-11-17 02:45 | disposition short-term general hospital (02) ==
LOC: EDUNIT# 20:31 → ER 20:34
DX: K70.30 Alcoholic cirrhosis of liver without ascites (principal); I85.11 Secondary esophageal varices with bleeding; F10.229 Alcohol dependence with intoxication, unspecified; D62 Acute posthemorrhagic anemia; E87.1 Hypo-osmolality and hyponatremia; F12.90 Cannabis use, unspecified, uncomplicated; R74.8 Abnormal levels of other serum enzymes; Y90.6 Blood alcohol level of 120-199 mg/100 ml; Z90.49 Acquired absence of other specified parts of digestive tract
CPT/HCPCS: 36415; 71260; 74177; 80048; 80053; 80306; 80320; 80329; 81000; 82150; 83690; 83735; 85025; 85027; 85610; 85652; 85730; 86141; 93041

== ENCOUNTER 2023-01-30 10:17 | Emergency (ER) | payer MEDICARE, MEDICAID ==
[~2023-01-30] VITALS: Ht 167.7 cm; Wt 74.8 kg
[2023-01-30 10:17] VITALS: BP 143/82
--- NOTE | 2023-01-30 10:24 | ED Chest Pain ---
General Stated Complaint: CHEST PAIN Source: patient Exam Limitations: no limitations History of Present Illness Date Seen by Provider: Jan 30, 2023 Time Seen by Provider: 10:16 Initial Comments 57-year-old male presents to the emergency department today for chest pain. Describes it as tension in his left anterior chest that radiates up into his neck and shoulder blade and down his arm. It is worse with movement or palpation. He has never had similar pains in the past. 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 He denies any fevers chills cough abdominal pain or changes in bowel or bladder habits. He does not have any history of cardiac disease. No shortness of breath. No unilateral lower extremity pain or swelling. His pain is significantly worse with movement of his left upper extremity and again direct palpation. All other systems reviewed and negative except documented per HPI. Voice recognition software was used to help create this chart Allergies and Home Medications Allergies Coded Allergies: No Known Drug Allergies (Unverified , 03/10/19) Patient Home Medication List Home Medication List Reviewed: Yes Amoxicillin/Potassium Clav (Amox Tr-K Clv 875-125 mg Tab) 875 Mg-125 Mg Tablet, 1 EACH PO BID Prescribed by: NAYANA CHANEL on 04/25/22 1014 Bimatoprost (Lumigan) 2.5 Ml Drops, 1 DROP OU DAILY, (Reported) Entered as Reported by: RACQUEL GROVES on 03/10/19 0845 Ciprofloxacin HCl (Ciprofloxacin HCl) 500 Mg Tablet, 500 MG PO BID Prescribed by: MIRYAM GREWAL on 06/07/20 1106 Diclofenac Sodium (Diclofenac Sodium) 75 Mg Tablet.dr, 75 MG PO BID Prescribed by: MIRYAM GREWAL on 06/07/20 1106 Hydrocodone Bit/Acetaminophen (HYDROcodone/APAP 7.5/325 TAB) 1 Each Tablet, 1-2 TAB PO Q4H Prescribed by: SONIA UNGER on 03/17/19 0926 Levothyroxine Sodium (Levothyroxine Sodium) 50 Mcg Tablet, 50 MCG PO DAILY, (Reported) Entered as Reported by: RACQUEL GROVES on 03/10/19 0845 Lisinopril/Hydrochlorothiazide (Lisinopril-Hctz 10-12.5 mg Tab) 1 Each Tablet, 2 EACH PO DAILY, (Reported) Entered as Reported by: RACQUEL GROVES on 03/10/19 0845 Metronidazole (Flagyl) 500 Mg Tablet, 500 MG PO TID Prescribed by: MIRYAM GREWAL on 06/07/20 1106 Pantoprazole Sodium (Protonix) 40 Mg Tablet.dr, 40 MG PO DAILY Prescribed by: SONIA UNGER on 03/17/19 1149 Review of Systems Review of Systems Constitutional: see HPI Past Qoepyjs-Dazcji-Bholtg Hx Patient Social History Tobacco Use?: No Use of E-Cig and/or Vaping dev: No Substance use?: No Immunizations Up To Date First/Initial COVID19 Vaccinat: 2020 Second COVID19 Vaccination Noel: 2020 Third COVID19 Vaccination Date: 2020 Seasonal Allergies Seasonal Allergies: No Past Medical History Surgery/Hospitalization HX: BACK SX, CIRRHOSIS Surgeries: Yes (R knee scope, back sx) Gallbladder, Orthopedic Respiratory: No Cardiac: Yes Hypertension Neurological: No Genitourinary: No Gastrointestinal: Yes (GASTRITIS) Gastroesophageal Reflux, Hemorrhoids, Esophageal Varices, Cirrhosis Musculoskeletal: Yes (BACK SURGERY; R HIP FX; R KNEE SCOPE) Chronic Back Pain, Fractures Endocrine: Yes Hypothyroidsim HEENT: Yes Glaucoma Cancer: No Psychosocial: Yes (ALCOHOLISM AND MARIJUANA USE) Integumentary: No Blood Disorders: No Family Medical History SOCIAL HISTORY: -SMOKING--DENIES USE -ETOH-- 30 PACK/DAY ALL OF LIFE -MARIJUANA--DAILY USE PAST SURGICAL HISTORY: -03/17/2019--CHOLECYSTECTOMY, WITH EGD AND COLONOSCOPY BY DR. URIBE ( MODERATE TO SEVERE GASTRITIS, GRADE 3 ESOPHAGEAL VARICES, HEMORRHOIDS) -RIGHT KNEE SCOPE -BACK SURGERY -05/07/2021--RIGHT HIP FRACTURE Physical Exam Vital Signs Vital Signs - First Documented 01/30/23 10:17 Temp 36.9 Pulse 72 Resp 15 B/P (MAP) 143/82 (102) O2 Delivery Room Air Capillary Refill : Height, Weight, BMI Height: 5'7.00" Weight: 160lbs. 0.0oz. 72.267420rz; 26.00 BMI Method: General Appearance: No Apparent Distress, WD/WN HEENT: Normal ENT Inspection, Pharynx Normal Neck: Full Range of Motion, Normal Inspection, Non Tender, Supple Respiratory: Lungs Clear, Normal Breath Sounds, No Accessory Muscle Use, No Respiratory Distress, Other (Significant tenderness to palpation left anterior chest wall in the superior portion, left lateral neck musculature and left parascapular region. There is no crepitus or skin changes.) Cardiovascular: Regular Rate, Rhythm, Normal Peripheral Pulses Gastrointestinal: Normal Bowel Sounds, No Organomegaly, No Pulsatile Mass, Non Tender, Soft Extremity: Normal Capillary Refill, Normal Inspection, Normal Range of Motion, Non Tender, No Calf Tenderness, No Pedal Edema Neurologic/Psychiatric: Alert, Oriented x3, No Motor/Sensory Deficits Skin: Normal Color, Warm/Dry Lymphatic: No Adenopathy Procedures/Interventions Suture Size: 4-0 Progress/Results/Core Measures Results/Orders Lab Results Laboratory Tests Test 01/30/23 10:20 Range/Units White Blood Count 2.3 L 4.3-11.0 10^3/uL Red Blood Count 3.46 L 4.30-5.52 10^6/uL Hemoglobin 10.9 L 13.3-17.7 g/dL Hematocrit 32 L 40-54 % Mean Corpuscular Volume 92 80-99 fL Mean Corpuscular Hemoglobin 32 25-34 pg Mean Corpuscular Hemoglobin Concent 34 32-36 g/dL Red Cell Distribution Width 13.9 10.0-14.5 % Platelet Count 65 L 130-400 10^3/uL Mean Platelet Volume 11.6 9.0-12.2 fL Immature Granulocyte % (Auto) 0 % Neutrophils (%) (Auto) 56 42-75 % Lymphocytes (%) (Auto) 25 12-44 % Monocytes (%) (Auto) 16 H 0-12 % Eosinophils (%) (Auto) 3 0-10 % Basophils (%) (Auto) 0 0-10 % Neutrophils # (Auto) 1.3 L 1.8-7.8 10^3/uL Lymphocytes # (Auto) 0.6 L 1.0-4.0 10^3/uL Monocytes # (Auto) 0.4 0.0-1.0 10^3/uL Eosinophils # (Auto) 0.1 0.0-0.3 10^3/uL Basophils # (Auto) 0.0 0.0-0.1 10^3/uL Immature Granulocyte # (Auto) 0.0 0.0-0.1 10^3/uL Percent Immature Platelet Fraction 8.4 H 0.0-7.6 % Sodium Level 132 L 135-145 MMOL/L Potassium Level 4.0 3.6-5.0 MMOL/L Chloride Level 101 98-107 MMOL/L Carbon Dioxide Level 20 L 21-32 MMOL/L Anion Gap 11 5-14 MMOL/L Blood Urea Nitrogen 17 7-18 MG/DL Creatinine 0.81 0.60-1.30 MG/DL Estimat Glomerular Filtration Rate 104 BUN/Creatinine Ratio 21 Glucose Level 153 H 70-105 MG/DL Calcium Level 9.8 8.5-10.1 MG/DL Corrected Calcium 9.9 8.5-10.1 MG/DL Total Bilirubin 1.0 0.1-1.0 MG/DL Aspartate Amino Transf (AST/SGOT) 23 5-34 U/L Alanine Aminotransferase (ALT/SGPT) 14 0-55 U/L Alkaline Phosphatase 91 40-136 U/L Troponin I < 0.30 <0.30 NG/ML Total Protein 6.9 6.4-8.2 GM/DL Albumin 3.9 3.2-4.5 GM/DL My Orders Orders - AMBER MACKAY DO Cbc With Automated Diff (01/30/23 10:21) Chest 1 View Ap/Pa Only (01/30/23 10:21) Ekg Tracing (01/30/23 10:21) Comprehensive Metabolic Panel (01/30/23 10:21) Aspirin Chewable Tablet (Baby Aspirin Ch (01/30/23 10:30) Ed Iv/Invasive Line Start (01/30/23 10:21) Troponin I Fs (01/30/23 10:21) Ketorolac Injection (Toradol Injection) (01/30/23 10:30) Medications Given in ED Current Medications Medications Dose Ordered Sig/Blu Route Start Time Stop Time Status Last Admin Dose Admin Aspirin 324 mg ONCE ONCE PO 01/30/23 10:30 01/30/23 10:31 DC 01/30/23 10:34 324 MG Ketorolac Tromethamine 15 mg ONCE ONCE IVP 01/30/23 10:30 01/30/23 10:31 DC 01/30/23 10:33 15 MG Vital Signs/I&O 01/30/23 10:17 Temp 36.9 Pulse 72 Resp 15 B/P (MAP) 143/82 (102) O2 Delivery Room Air Comment Sinus rhythm with a rate of 65 bpm. Normal intervals. Normal axis. No ST or T wave abnormalities. No ectopy. No STEMI. Departure Communication (Admissions) Patient is hemodynamically stable. He has very clear musculoskeletal pain on exam. Cardiac work-up is negative. Interestingly he does have pancytopenia with low white count, hemoglobin and platelets. Did advise that he follow this up with his primary doctor however it likely is contributory to his current symptoms. Impression Primary Impression: Chest wall pain Disposition: HOME, SELF-CARE Condition: Stable Departure-Patient Inst. Referrals: SHENG CHAU APRN (PCP) Primary Care Physician LOUANN DENIS DO (Family) Primary Care Physician Patient Instructions: Chest Pain That Is Not Caused by the Heart (DC) Add. Discharge Instructions: Use the Toradol as needed. I believe your pain is likely musculoskeletal not coming from your heart or your lungs at this time. Recommend you follow-up with your primary doctor as discussed for further evaluation and testing recommendations. Your blood counts are slightly low. This is likely nonspecific but will need to be followed up by your primary doctor. Return to the emergency department for any severe concerns. Scripts Ketorolac Tromethamine (Ketorolac Tromethamine) 10 Mg Tablet 10 MG PO TID for Pain for 3 Days, #9 TAB Prov: AMBER MACKAY DO 01/30/23 AMBER MACKAY DO Jan 30, 2023 10:24
[2023-01-30] MEDS ORDERED: ASPIRIN 81 MG CHEW (CHILDREN'S ASA) PO ONE (10:30)
[2023-01-30] MEDS ORDERED: KETOROLAC 15 MG/ML VIAL IVP ONE (10:30)
--- NOTE | 2023-01-30 10:37 | Diagnostic Imaging Report ---
CHEST 1 VIEW AP/PA ONLY INDICATION: CP. COMPARISON: CT of the chest on 11/16/2022. FINDINGS: Lungs: Normal lung volume. No focal consolidation. Stable pulmonary vasculature. Pleura: No pleural effusion or pneumothorax. Heart and Mediastinum: Cardiomediastinal silhouette and great vessels of the thorax are stable. Osseous Structures and Soft Tissues: No acute osseous abnormality. Normal soft tissues. IMPRESSION: No acute cardiopulmonary process. Dictated by: Dictated on workstation # [id number]
[2023-01-30 10:56] LABS: BASOPHILS % (AUTO) 0 % (0-10); EOSINOPHILS # (AUTO) 0.1 10^3/uL (0.0-0.3); EOSINOPHILS % (AUTO) 3 % (0-10); HEMATOCRIT 32 % (40-54); HEMOGLOBIN 10.9 g/dL (13.3-17.7); LYMPHOCYTES # (AUTO) 0.6 10^3/uL (1.0-4.0); LYMPHOCYTES % (AUTO) 25 % (12-44); MEAN CORPUSCULAR HEMOGLOBIN 32 pg (25-34); MEAN CORPUSCULAR HGB CONC 34 g/dL (32-36); MEAN CORPUSCULAR VOLUME 92 fL (80-99); MEAN PLATELET VOLUME 11.6 fL (9.0-12.2); MONOCYTES # (AUTO) 0.4 10^3/uL (0.0-1.0); MONOCYTES % (AUTO) 16 % (0-12); NEUTROPHILS # (AUTO) 1.3 10^3/uL (1.8-7.8); NEUTROPHILS % (AUTO) 56 % (42-75); PLATELET COUNT 65 10^3/uL (130-400); WHITE BLOOD COUNT 2.3 10^3/uL (4.3-11.0)
[2023-01-30 11:08] LABS: ALANINE AMINOTRANSFERASE 14 U/L (0-55); ALKALINE PHOSPHATASE 91 U/L (40-136); BUN/CREATININE RATIO 21; CALCIUM 9.8 MG/DL (8.5-10.1); CARBON DIOXIDE 20 MMOL/L (21-32); CHLORIDE 101 MMOL/L (98-107); CREATININE SERUM 0.81 MG/DL (0.60-1.30); GFR ESTIMATED 104; GLUCOSE 153 MG/DL (70-105); SODIUM 132 MMOL/L (135-145); TOTAL PROTEIN 6.9 GM/DL (6.4-8.2)
[2023-01-30 11:09] LABS: ALBUMIN 3.9 GM/DL (3.2-4.5)
[2023-01-30] MEDS ORDERED: KETO10TA PO (11:14)
== END 2023-01-30 11:20 | disposition home or self-care (01) ==
LOC: EDUNIT# 10:17 → ER FS 10:18
DX: R07.89 Other chest pain (principal); Z28.311 Partially vaccinated for COVID-19
CPT/HCPCS: 36415; 71045; 80053; 84484; 85025; 93005